=== PATIENT | male | born 2005 | race Caucasian/White ===

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

== ENCOUNTER 2023-02-10 09:06 | Outpatient (AMB) | payer MEDICAID, SELFPAY ==
--- NOTE | 2023-02-10 09:11 | MHC.OFFVIS ---
Intake Vital Signs 02/10/23 09:20 Height 5 ft 5 in Weight 187 lb 2 oz BMI 31.1 BP 124/71 Blood Pressure Location Lt brachial Position Sitting Pulse 116 H Intake Visit Reasons: pilonidal abscess *urgent appt request by * Intake Note: Patient is seen in office for follow up visit, following pilonidal abscess. Patient c/o: admits to increase pain onset 5 days ago, went to [facility] walk-in yesterday was Rx antbx, feeling feverish , denies redness, hot to touch, discharge E Commerce Marketing Manager Required: No Accompanied by: Family/Other Allergies No Known Allergies Allergy (Unverified 02/10/23 09:19) HPI HPI Comments History of Present Illness Details 17-year-old male patient previously evaluated for pilonidal cyst which resolved spontaneously after starting antibiotics now presenting with a recurrent abscess. The pain began approximately 4 days ago and has increased in severity since then. He denies fever or chills but does feel sick. Pain increases with walking and sitting. He denies any bleeding or discharge. He was started on antibiotics yesterday and has taken 3 doses so far. FORMERLY [facility] Medical History Eczema Autism Pilonidal abscess Surgical History History of wisdom tooth extraction Family History Father Non-Hodgkin lymphoma, Onset Age: 40 Social History Alcohol intake: never Patient Tobacco Use Status: Never used Tobacco Review of Systems Const All systems reviewed & are unremarkable except as noted in HPI and below Physical Exam Const General: comfortable and no acute distress Nutritional Appearance: well nourished Orientation/consciousness: patient oriented x3 Limitations: no limitations Resp Effort & Inspection: normal respiratory effort GI Inspection: Yes normal to inspection Back/Spine/Pelvis Back/spine/pelvis image: 1. Site of large abscess right intergluteal fold, tender to palpation surrounding erythema. No discharge noted. Skin General skin exam: no rashes or lesions noted Neuro General: patient oriented x3 Extrem General: Yes no clubbing, cyanosis or edema Office Procedures I&D Drain Details: Preoperative diagnosis: Pilonidal cyst abscess Postoperative diagnosis: Same Procedure: Incision and drainage pilonidal cyst abscess Surgeon: Ronny Kilpatrick MD Dentures Lab Technician: None Anesthesia: Lidocaine 1% with epinephrine Indications for procedure: Recurrent pilonidal cyst abscess right gluteal wall Operative findings: Large pilonidal cyst abscess collection Specimen: Wound culture Estimated blood loss: Less than 1 mL Complications: None Procedure details: Patient was placed in a prone position. The site of surgery was confirmed by the patient and informed consent confirmed. After assuring informed consent the skin was prepped with Betadine and draped in a sterile fashion. Local anesthesia was then infiltrated directly over the center portion of the abscess. Incision measuring approximately 1.5 cm was then made directly into the abscess. A large purulence collection was immediately drained. This was then irrigated with saline solution. Wound was then packed with quarter-inch Nu Gauze. Wound was then dressed with fluff gauze and ABD pad. This was then secured using paper tape. The patient tolerated the procedure well. He was discharged to home in stable condition. 12060-Nnfjuzky of Skin Abscess, simple All charges added?: Procedure code (CPT) selection complete Assessment & Plan Assessment & Plan (1) Pilonidal abscess: Code(s): L05.01 - Pilonidal cyst with abscess Plan 17-year-old male patient with recurrent pilonidal cyst abscess. He underwent incision and drainage today and tolerated the procedure well. He will follow up in 1 week for wound check. I recommended changing dressings 1-2 times daily. He may soaked wound in a Sitz bath, warm tub, or shower. Packing will generally fall out after 2-3 days. If it should remain in place, this will be removed in the office. On the other hand if it falls out sooner, he will not need to be replaced. He should continue antibiotics as prescribed. Orders: Orders Routine Culture w Gram Stain Today L05.01 - Pilonidal cyst with abscess Coding Level of Care Code Est Pt Level 3 (65803) Diagnoses Pilonidal abscess L05.01 CPT Codes I&D Drain - Drain 1: 31692-Rggekpou of Skin Abscess, simple ([id number])
[2023-02-10 09:20] VITALS: BP 124/71; PULSE 116; BMI 31.1
== END 2023-02-10 09:40 | disposition home or self-care (01) ==
PROVIDERS: PCP Registered Nurse; Visit Provider Surgery
DX: L05.01 Pilonidal cyst with abscess (principal)
CPT/HCPCS: 10080; 99213

== ENCOUNTER 2023-02-10 09:06 | Outpatient (REF) | payer MEDICAID, SELFPAY | END 2023-02-10 09:07 | disposition home or self-care (01) | LOC: HO.LNP 09:06 | PROVIDERS: PCP Registered Nurse; Visit Provider Surgery | DX: L05.01 Pilonidal cyst with abscess (principal) | CPT/HCPCS: 10080; 87070; 87205; 99212 ==

== ENCOUNTER 2023-02-17 09:06 | Outpatient (REF) | payer MEDICAID, SELFPAY ==
[2023-02-17 11:29] LABS: Estimated Average Glucose 105 mg/dL; Hemoglobin A1c % 5.3 % (<6.0)
[2023-02-17 12:05] LABS: Alanine Aminotransferase 53 U/L (0-40); Albumin Level 4.7 g/dL (3.5-5.0); Alkaline Phosphatase 75 U/L (39-117); Anion Gap 10 (12-20); Aspartate Amino Transferase 28 U/L (5-37); Bilirubin Total 0.3 mg/dL (0.0-1.0); Blood Urea Nitrogen 9 mg/dL (9-16); Calcium 9.6 mg/dL (8.4-10.2); Carbon Dioxide 29 mmol/L (22-29); Chloride 105 mmol/L (96-108); Cholesterol 151 mg/dL (<200); Estimated Glomerular Filt Rate > 60; Glucose Random 94 mg/dL (60-115); HDL Cholesterol 40 mg/dL (>40); LDL Cholesterol Calculated 77 mg/dL (<100); Sodium 140 mmol/L (135-145); Total Protein 7.6 g/dL (6.5-8.0); Triglycerides 171 mg/dL (<150)
[2023-02-17 12:07] LABS: TSH reflex Free T4 2.32 uIU/mL (0.32-4.0)
== END 2023-02-17 09:07 | disposition home or self-care (01) ==
LOC: HO.HHCL 09:06
PROVIDERS: Visit Provider General Practice
DX: Z00.00 Encounter for general adult medical examination without abnormal findings (principal); L05.01 Pilonidal cyst with abscess
CPT/HCPCS: 36415; 80053; 80061; 83036; 84443; 99212

== ENCOUNTER 2023-02-17 09:36 | Outpatient (AMB) | payer MEDICAID, SELFPAY ==
--- NOTE | 2023-02-17 09:41 | A.OFFVIS_ITS ---
Intake Vital Signs 3 02/17/23 09:42 Height 5 ft 5 in Weight 189 lb BMI 31.4 BP 126/75 Blood Pressure Location Lt brachial Position Sitting Pulse 90 Intake Visit Reasons: f/u I&D Intake Note: Patient is seen in office for one week follow up visit, following I&D pilonidal abscess. Patient c/o: no discharge for the past couple of days, finish the antibiotics, healing Marketing Reporting Analyst Required: No Accompanied by: Family/Other Allergies No Known Allergies Allergy (Unverified 02/17/23 09:43) Medication List - Last Reconciled 02/17/23 by Ronny Kilpatrick MD clonidine HCl 0.1 mg PO DAILY doxycycline hyclate 100 mg PO BID risperidone 1 mg PO BEDTIME HPI HPI Comments 2 History of Present Illness0 Details 17-year-old male patient previously eval uated for pilonidal cyst which resolved spontaneously after starting antibiotics now presenting with a recurrent abscess. The pain began approximately 1 week ago and subsequently required incision and drainage performed in the office last week. Since this time he feels much improved with no further discharge for the last several days. He denies fever, chills, nausea or vomiting. He denies any further pain in the back. He is interested in having this site excised as this is the 3rd recurrence of his infection. [facility]LY [facility] Medical History Eczema Autism Pilonidal abscess Surgical History History of wisdom tooth extraction Family History Father Non-Hodgkin lymphoma, Onset Age: 40 Alcohol intake: never Patient Tobacco Use Status: Never used Tobacco Review of Systems Const All systems reviewed & are unremarkable except as noted in HPI and below Physical Exam Vital Signs: Last Vital Signs Pulse 90 02/17/23 09:42 BP 126/75 02/17/23 09:42 BMI result Body Mass Index 31.4 Const General: comfortable and no acute distress Nutritional Appearance: well nourished Orientation/consciousness: patient oriented x3 Limitations: no limitations Resp Effort & Inspection: normal respiratory effort GI Inspection: Yes normal to inspection Back/Spine/Pelvis Other: Incision and drainage site on the right gluteal wall is clean and intact without evidence of fluctuance or drainage. Palpable tenderness is elicited. No evidence of ongoing infection at this time. Back/spine/pelvis image: 2 1. Incision site right gluteal wall Skin General skin exam: no rashes or lesions noted Neuro General: patient oriented x3 Extrem General: Yes no clubbing, cyanosis or edema Assessment & Plan Assessment & Plan (1) Pilonidal abscess: Code(s): L05.01 - Pilonidal cyst with abscess Plan 17-year-old male patient with a history of multiple recurrent pilonidal cyst abscesses returning 1 week following incision and drainage of a large pilonidal cyst abscess. We discussed the possibility of wider excision of the cleft as a way to reduce the chances of recurrent infection. After discussion of the procedure, risks, and alternatives, he consents to a pilonidal cystectomy. This will be performed as a short-stay surgery. Coding Level of Care Code Global (53512) Diagnoses Pilonidal abscess L05.01
[2023-02-17 09:42] VITALS: BP 126/75; PULSE 90; BMI 31.4
== END 2023-02-17 09:50 | disposition home or self-care (01) ==
PROVIDERS: PCP Registered Nurse; Visit Provider Surgery
DX: L05.01 Pilonidal cyst with abscess (principal)
CPT/HCPCS: 99024

== ENCOUNTER 2023-03-04 05:57 | Day surgery (SDC) | payer MEDICAID, SELFPAY ==
[2023-03-02 11:20] VITALS: BMI 31.4
--- NOTE | 2023-03-03 09:00 | HO.ANESPROP2 ---
Documented by User: Kim Yoon NP 03/03/23 09:00 HPI - Anesthesia Eval Consult details Narrative: 17yo M for Excision Pilonidal Cyst PMFSH Active Problems Active Problems: All Active Problems (Updated 05/15/22 @ 11:18 by Ronny Kilpatrick MD) Pilonidal abscess (Acute) Past Medical History Medical History Eczema Autism Pilonidal abscess Family History Family History Father Non-Hodgkin lymphoma, Onset Age: 40 Surgical History Surgical History History of wisdom tooth extraction Social History Social History Alcohol intake: never Patient Tobacco Use Status: Never used Tobacco Are you DNR?: No Advance Directives: No Advance Directives Information Provided: Yes Nutrition Risks: No Nutritional Risk Meds Allergies Allergy/AdvReac Type Severity Reaction Status Date / Time No Known Allergies Allergy Verified 03/04/23 06:22 Home Medications Medication Instructions Recorded Confirmed Last Taken Type risperidone 1 mg tablet 1 mg PO BEDTIME 02/10/23 03/04/23 03/02/23 History famotidine 20 mg tablet 20 mg PO BEDTIME 03/04/23 03/04/23 03/03/23 History hydroxyzine HCl 25 mg tablet 25 mg PO BEDTIME PRN insomnia 03/04/23 03/04/23 03/03/23 History Exam Height,Weight and Vital Signs: Height 5 ft 5 in Weight 85.729 kg Pertinent Lab Results Pertinent Lab Results: Laboratory Tests 02/17/23 09:09 Sodium 140 Potassium 4.0 Chloride 105 Carbon Dioxide 29 BUN 9 Creatinine 0.78 Assessment and Plan Assessment Anesthesia Assessment: Chart Reviewed Documented by User: Javon Turner MD 03/04/23 07:27 FORMERLY [facility] Past Medical History Medical History Eczema Autism Pilonidal abscess Family History Family History Father Non-Hodgkin lymphoma, Onset Age: 40 Family history of problems with anesthesia: No Surgical History Surgical History History of wisdom tooth extraction History of Problems with Anesthesia: No Social History Social History Alcohol intake: never Patient Tobacco Use Status: Never used Tobacco Are you DNR?: No Advance Directives: No Advance Directives Information Provided: Yes Nutrition Risks: No Nutritional Risk Meds Allergies Allergy/AdvReac Type Severity Reaction Status Date / Time No Known Allergies Allergy Verified 03/04/23 06:22 Home Medications Medication Instructions Recorded Confirmed Last Taken Type risperidone 1 mg tablet 1 mg PO BEDTIME 02/10/23 03/04/23 03/02/23 History famotidine 20 mg tablet 20 mg PO BEDTIME 03/04/23 03/04/23 03/03/23 History hydroxyzine HCl 25 mg tablet 25 mg PO BEDTIME PRN insomnia 03/04/23 03/04/23 03/03/23 History Exam Airway Mallampati Class: I TM Dist: <=3cm Neck ROM: Full Loose/Missing/Broken Teeth: No Heart: ok Lungs: ok Assessment and Plan Assessment Anesthesia Assessment: Anesthesia Plan Discussed Final Anesthetic Review Family History of Problems with Anesthesia: No History of Problems with Anesthesia: No NPO: Yes ASA Class: II Final Preanesthetic Review: No Changes in Pt Med Stat, Meds/Allgs Chart Reviewed, Consent Obtained/Reviewed and Anes Risks/Benef Reviewed Patient Risk: Intermediate Procedure Risk: Intermediate Anesthetic Plan Anesthetic Plan: GA and Agree w/ Assess. and Plan Disposition: Standard PACU
[2023-03-04] VITALS (7 sets, daily range): BP systolic 124–147; BP diastolic 72–85; PULSE 73–97; RESP 16–20; TEMP 36.6; O2SAT 96–98; BMI 30.8
[2023-03-04] MEDS: Lactated Ringers 1,000 ML 100 ML IVCONT (06:32)
--- NOTE | 2023-03-04 07:27 | MHC.SHP ---
Pre-Procedural Eval Section A Date of Service: 03/04/23 The patient is an INPATIENT: No Changes since office visit: Yes Patient answered all questions; No Cold of Flu in the past 2 weeks, No New Medical Problems and No Changes in Medication The History & Physical has been completed within 30 days and I have reviewed it.: Yes Section B Chief Complaint: Pilonidal cyst with abscess Allergies: Allergies Allergy/AdvReac Type Severity Reaction Status Date / Time No Known Allergies Allergy Verified 03/04/23 06:22 Plan Diagnosis/Plan: Unchanged I have reviewed the history and physical and performed a pertinent physical examination on my patient. No changes have occurred unless specified. Time Spent With Patient Time: Total time managing care of this patient today ____ minutes.
--- NOTE | 2023-03-04 08:25 | W.PM.OPN ---
Operative Note Operative Note Date of Service: 03/04/23 Narrative: Preoperative diagnosis: pilonidal cyst abscess Postoperative diagnosis: same Procedure: pilonidal cystectomy Surgeon: Ronny Kilpatrick MD Fibre Optics Jointer: none Anesthesia: general LMA Indications for procedure: 17-year-old male patient presenting with multiple episodes of pilonidal cyst abscess presenting today for wide excision to reduce the chances of further infection Operative findings: pilonidal cyst with no active infection Specimen: pilonidal cyst Estimated blood loss: 5 mL Complications: none Procedure details: patient was brought to the OR and placed in a prone position. After administering general anesthesia patient's p.o. cleft was prepped with Betadine and draped in a sterile fashion. A surgical time-out was called the consent confirmed. Patient received preoperative antibiotics and Venodyne boots were in place. Local anesthesia consisting of 0.5% Sensorcaine was infiltrated around the pilonidal cyst. An elliptical incision radiating to the right was then created with a scalpel carried out through subcutaneous tissue. Electrocautery was then used to dissect the lesion off the presacral fascia. Specimen was passed off the table and sent to pathology for further examination. Hemostasis was assured using electrocautery. The wounds were then irrigated with saline solution. Deep subcutaneous tissue was then closed using interrupted 2-0 Polysorb suture. Dermis was then reapproximated using interrupted 3-0 Polysorb sutures. Skin was closed using interrupted 2 0 nylon sutures in a mattress formation. Sterile dressings consisting of flat gauze and ABD pad were then applied. The patient tolerated the procedure well. Sponge, instrument, needle counts reported as correct. The patient was transferred to PACU in stable condition.
== END 2023-03-04 09:45 | disposition home or self-care (01) ==
PROVIDERS: Visit Provider Surgery
PROC: (CPT 11771; principal; 2023-03-04 07:30)
DX: L05.01 Pilonidal cyst with abscess (principal); F84.0 Autistic disorder; L30.9 Dermatitis, unspecified; Z79.899 Other long term (current) drug therapy
CPT/HCPCS: 11771; 88304; J1885; J2405; J2704; J2795; J3010

== ENCOUNTER → 2023-03-04 05:57 | Outpatient (BNV) | payer MEDICAID, SELFPAY | PROVIDERS: Visit Provider Surgery | DX: L05.01 Pilonidal cyst with abscess (principal) | CPT/HCPCS: 11771 ==

== ENCOUNTER 2023-03-13 08:51 | Outpatient (AMB) | payer MEDICAID, SELFPAY ==
--- NOTE | 2023-03-13 09:02 | MHC.OFFVIS ---
Intake Vital Signs 03/13/23 09:12 Height 5 ft 5 in Weight 184 lb 8 oz BMI 30.7 BP 114/61 Blood Pressure Location Lt brachial Position Sitting Pulse 87 Intake Visit Reasons: S/P pilonidal cystectomy Intake Note: Patient is seen in office for post op assessment post excision of pilonidal cyst. Pt c/o: admits to minimal pain, some discharge, area is crusty surgery: 03/04/23 Cuprous Chloride Operator Required: No Accompanied by: Self / Same As Patient Allergies No Known Allergies Allergy (Verified 03/04/23 06:22) Medication List - Last Reconciled 03/13/23 by Ronny Kilpatrick MD famotidine 20 mg PO BEDTIME hydroxyzine HCl 25 mg PO BEDTIME PRN risperidone 1 mg PO BEDTIME HPI HPI Comments History of Present Illness Details Patient returns 1 week following pilonidal cystectomy. He reports some itching from the incision but denies any bleeding or discharge. [facility] Medical History Eczema Autism Pilonidal abscess Surgical History History of excision of pilonidal cyst (03/04/23) History of wisdom tooth extraction Family History Father Non-Hodgkin lymphoma, Onset Age: 40 Social History Alcohol intake: never Patient Tobacco Use Status: Never used Tobacco Physical Exam Vital Signs: Last Vital Signs Pulse 87 03/13/23 09:12 BP 114/61 03/13/23 09:12 BMI result Body Mass Index 30.7 GI Other: Incision in the intergluteal cleft is clean, dry and intact. 1/2 of the sutures were removed and the wounds found to be well healed. No evidence of an underlying infection. Assessment & Plan Assessment & Plan (1) Pilonidal abscess: Code(s): L05.01 - Pilonidal cyst with abscess Plan Patient returns 1 week following pilonidal cystectomy. His wounds are clean and intact. 1/2 was removed. He will return in 2 weeks for the remaining sutures to be removed. Coding Level of Care Code Global (35482) Diagnoses Pilonidal abscess L05.01
[2023-03-13 09:12] VITALS: BP 114/61; PULSE 87; BMI 30.7
== END 2023-03-13 09:24 | disposition home or self-care (01) ==
PROVIDERS: PCP Registered Nurse; Visit Provider Surgery
DX: L05.01 Pilonidal cyst with abscess (principal)
CPT/HCPCS: 99024

== ENCOUNTER → 2023-03-13 08:51 | Outpatient (BNVA) | payer MEDICAID, SELFPAY | PROVIDERS: PCP Registered Nurse; Visit Provider Surgery | DX: Z48.817 Encounter for surgical aftercare following surgery on the skin and subcutaneous tissue (principal); Z98.890 Other specified postprocedural states | CPT/HCPCS: 99212 ==

== ENCOUNTER 2023-03-31 09:41 | Outpatient (AMB) | payer MEDICAID, SELFPAY ==
--- NOTE | 2023-03-31 09:50 | MHC.OFFVIS ---
Intake Vital Signs 03/31/23 09:51 Height 5 ft 5 in Weight 186 lb 8 oz BMI 31.0 BP 117/64 Blood Pressure Location Lt brachial Position Sitting Pulse 79 Intake Visit Reasons: 2 wk follow up S/P pilonidal cystectomy Intake Note: Patient is seen in office for 2 weeks follow up visit, post pilonidal cystectomy. Pt c/o: denies any concerns at the time of visit Lithopone Mill Worker Required: No Accompanied by: Self / Same As Patient Allergies No Known Allergies Allergy (Verified 03/31/23 09:55) HPI HPI Comments History of Present Illness Details Andrae returns today for final wound check. He feels well and denies any ongoing symptoms of bleeding or discharge. He had some pain yesterday but is improved today. [facility] Medical History Eczema Autism Pilonidal abscess Surgical History History of excision of pilonidal cyst (03/04/23) History of wisdom tooth extraction Family History Father Non-Hodgkin lymphoma, Onset Age: 40 Social History Alcohol intake: never Patient Tobacco Use Status: Never used Tobacco Physical Exam Vital Signs: Last Vital Signs Pulse 79 03/31/23 09:51 BP 117/64 03/31/23 09:51 BMI result Body Mass Index 31.0 Const General: healthy appearing Back/Spine/Pelvis Other: Incision in the intergluteal cleft is clean, dry, and intact. Three remaining sutures were removed and the wounds found to be well healed. Extrem General: No edema Assessment & Plan Assessment & Plan (1) Pilonidal abscess: Code(s): L05.01 - Pilonidal cyst with abscess Plan Patient returns approximately 4 weeks following pilonidal cystectomy. His wounds are clean, dry, and intact. He should follow up as needed. Coding Level of Care Code Global (19866) Diagnoses Pilonidal abscess L05.01
[2023-03-31 09:51] VITALS: BP 117/64; PULSE 79; BMI 31.0
== END 2023-03-31 10:20 | disposition home or self-care (01) ==
PROVIDERS: PCP Registered Nurse; Visit Provider Surgery
DX: L05.01 Pilonidal cyst with abscess (principal)
CPT/HCPCS: 99024

== ENCOUNTER → 2023-03-31 09:41 | Outpatient (BNVA) | payer MEDICAID, SELFPAY | PROVIDERS: PCP Registered Nurse; Visit Provider Surgery | DX: Z09 Encounter for follow-up examination after completed treatment for conditions other than malignant neoplasm (principal); Z87.2 Personal history of diseases of the skin and subcutaneous tissue | CPT/HCPCS: 99212 ==

== ENCOUNTER → 2024-04-07 20:52 | Outpatient (BNV) | payer MEDICAID, SELFPAY | PROVIDERS: PCP General Practice; Visit Provider Radiology Neuroradiology | DX: S62.304A Unspecified fracture of fourth metacarpal bone, right hand, initial encounter for closed fracture (principal) | CPT/HCPCS: 73130 ==

== ENCOUNTER 2024-04-12 09:54 | Outpatient (REF) | payer MEDICAID, SELFPAY ==
--- NOTE | ~2024-04-12 | XR_ITS ---
EXAMINATION: XR HAND 3 OR MORE VIEWS LEFT HISTORY: M79.642 - Pain in left hand COMPARISON: Comparison is made with the prior examination dated 04/07/2024. FINDINGS: Three views of the left hand are submitted. Osseous mineralization is normal. Again seen is a nondisplaced fracture of the base of the 5th metacarpal. The fracture line remains visible. The joint spaces are preserved. The soft tissues are unremarkable. XR/XR hand LT min 3V IMPRESSION: Nondisplaced fracture of the base of the 5th metacarpal without significant change. Electronically signed by: Mane Reynaga MD 04/14/2024 08:53 AM [facility]
== END 2024-04-12 09:55 | disposition home or self-care (01) ==
LOC: HO.HOSX 09:54
DX: M79.642 Pain in left hand (principal)
CPT/HCPCS: 73130

== ENCOUNTER 2024-04-12 13:52 | Outpatient (AMB) | payer MEDICAID, SELFPAY ==
[2024-04-12 14:12] VITALS: BMI 36.8
--- NOTE | 2024-04-12 14:12 | MHC.OFFVIS ---
Vital Signs 04/12/24 14:12 Height 5 ft 5 in Weight 221 lb BMI 36.8 Intake Visit Reasons: FC- ED f/u LT hand fx base of left 5th metacarpal Intake Note: Andrae 18 yr old left hand dominant male present today for a new patient visit for his left hand 5th MC fx. States he was upset and punch his monitor last 04/07/24. States he was seen in ED same day and was confirmed a fx. He was splinted and referred to orthopedic. Currently states he feels stiffness in his fingers. Denies pain. Allergies No Known Allergies Allergy (Verified 04/12/24 14:19) HPI HPI FC- ED f/u LT hand fx base of left 5th metacarpal: Details: Andrae 18 yr old left hand dominant male present today for a new patient visit for his left hand 5th MC fx. States he was upset and punch his monitor last 04/07/24. States he was seen in ED same day and was confirmed a fx. He was splinted and referred to orthopedic. Currently states he feels stiffness in his fingers. Denies pain. [facility] Medical History (Updated 05/03/24 @ 21:10 by CHAU Mcadams) Eczema Autism Pilonidal abscess Surgical History History of excision of pilonidal cyst (03/04/23) History of wisdom tooth extraction Family History Father Non-Hodgkin lymphoma, Onset Age: 40 Social History Alcohol intake: never Patient Tobacco Use Status: Never used Tobacco Review of Systems Const All systems reviewed & are unremarkable except as noted in HPI and below Physical Exam Vital Signs: BMI result Body Mass Index 36.8 Extrem Other: Patient is alert, oriented, and in no acute distress. Neuro: Normal sensation of the tips of all digits of the left hand at this time Vascular: Cap refill brisk Pain: Patient reports tenderness to palpation at the level of the fracture of the left 5th metacarpal Minimal discomfort with range of motion ROM: Patient was able to make a closed fist and extend all digits of the left hand fully Skin: No lacerations or abrasions. General: Mild edema noted of the ulnar left hand No ecchymosis, erythema, or evidence of infection. Psych: Appears grossly normal Affect normal Attitude cooperative Office Procedures AMB Fracture Care Fracture Billing Code: Fracture Billing Code Casting/Splints 05611-Niiv/Wrist Cast Application Procedure code (CPT) selection complete Results Reviewed Results Reviewed: X-rays obtained in the office today and independently reviewed by me, Carl Lucas PA-C, demonstrate nondisplaced fracture of the left 5th metacarpal base. Assessment & Plan Assessment & Plan (1) Nondisplaced fracture of base of fifth metacarpal bone, left hand, sequela: Code(s): S62.347S - Nondisplaced fracture of base of fifth metacarpal bone, left hand, sequela Category: Medical Plan 1. Nondisplaced left 5th metacarpal base fracture Date of injury 04/07/2024 Patient is educated about This condition Patient is educated about the typical recovery course At this time, patient was informed that he will not require surgery for this fracture, as it was nondisplaced Patient was placed into a short-arm ulnar gutter cast Patient was educated on proper cast care and precautions Patient will follow-up in 3 weeks with repeat x-rays for reassessment, sooner with any acute concerns Orders: Orders XR hand LT min 3V 04/12/24 M79.642 - Pain in left hand Coding Level of Care Code New Pt Level 3 (16677) Diagnoses Nondisplaced fracture of base of fifth metacarpal bone, left hand, sequela S62.347S CPT Codes Fracture Care - Fracture Billing Code: Fracture Billing Code ([id number]) Casting - CPT: 97990-Pzdi/Wrist Cast Application ([id number])
== END 2024-04-12 15:38 | disposition home or self-care (01) ==
PROVIDERS: PCP General Practice
DX: S62.347A Nondisplaced fracture of base of fifth metacarpal bone, left hand, initial encounter for closed fracture (principal)
CPT/HCPCS: 26600; 99203

== ENCOUNTER 2024-05-04 10:31 | Outpatient (REF) | payer MEDICAID, SELFPAY ==
--- NOTE | ~2024-05-04 | XR_ITS ---
CLINICAL HISTORY: M79.642 - Pain in left hand 3 view left hand Comparison: 04/07/2024 09:01 PM EST: CR Findings: Bones intact. No dislocations. No significant loss of joint space or osteophytes. No erosions. No radiopaque foreign body. IMPRESSION: 1. No acute findings This document has been electronically signed by: Jamey Jacob MD on 05/06/2024 08:09:25
--- OUTSIDE RECORDS SUMMARY | 2024-05-04 11:29 | XMS_ITS | Clinical Summary ---
Author Organization [employer] Address [address] [place] [address] 7t [place] [address] Care Team Providers Care Combiner Operator Name Role Phone Isha Estrada MD Primary Care Provider [phone] Allergies No known active allergies Medications triamcinolone (Kenalog) 0.1 % ointmentIndicat ions:Rash of both hands Apply topically 2 times daily. 30 g 3 Active propranolol (Inderal) 10 MG tablet TAKE 1 TABLET BY MOUTH TWICE A DAY NEEDED FOR SOCIAL ANXIETY 3 Active risperiDONE (RisperDAL) 1 MG tablet Take 1 mg by mouth at bedtime. 3 Active famotidine (Pepcid) 20 MG tablet Take 1 tablet (20 mg) by mouth at bedtime. 90 tablet 3 3 Active hydrOXYzine HCl (Atarax) 25 MG tablet TAKE 1 TABLET BY MOUTH ONCE DAILY AT BEDTIME NEEDED FOR SLEEP 90 tablet 3 4 Active Active Problems Problem Noted Date Diagnosed Date Reflux laryngitis 02/12/2023 Assessment & Plan (02/12/2023 10:22 AM EST): Presumptive dx due to tooth erosion Trial of Pepcid 20mg nightly x 3 months Hypertriglyceridemia 03/14/2022 Major depressive disorder 03/14/2022 Obesity 01/28/2017 Reduced visual acuity 08/16/2014 Autistic disorder 11/03/2011 Assessment & Plan (02/12/2023 10:21 AM EST): Trouble sleeping is main issue Switch from Clonidine to Attarax over next two weeks Continue Risperidal at night (prescribed by psych) Encounters Date Type Department Care Team Description 05/02/2024 Patient Outreach [facility] [address] [place] [address] Isha Estrada MD Pre-visit Planning ((Unable to reach for PVP screening, LVM)) 04/07/2024 Orders Only [facility] External Provider, [facility] 03/17/2024 Patient Outreach [facility] [address] [place] [address] Isha Estrada MD Pre-visit Planning ((Unable to reach for PVP screening, LVM)) 02/14/2024 Refill [facility] [address] [place] [address] Isha Estrada MD from Last 3 Months Immunizations Name Administration Dates Next Due DTaP 07/04/2008,01/25/2004 DTaP / Hep B / IPV 01/26/2004 DTaP, 5 pertussis antigens 01/01/2005,,2003,09/14 DTaP, Unspecified 01/01/2005,2003,09/15/19 04 HPV 9-Valent 02/11/2023,07/06/2020 Hep A, ped/adol, 2 dose 02/18/2013 Hep A, ped/adol, 3 dose 07/22/2010 Hep B, Adolescent or Pediatric 01/25/2004,2003,2003 Hep B, Unspecified 2003 HiB, unspecified 01/01/2005,01/26/2004, 4 Hib (HbOC) 01/25/2004,2003 Hib (PRP-T) 01/01/2005, 4,2003,09/14 IPV 07/04/2008, 4,2003,09/14 Influenza Injectable Quadriv alant Preservative Free IIV4 MDCK 01/28/2019 Influenza injectable quadriv alent preservative free 02/11/2023,01/01/2022,12/01/2020,02/20,05/07/2018,01/28/2017 Influenza, IIV3, injectable 12/18/2006 Influenza, Unspecified 04/16/2005 Influenza, live, intranasal 02/18/2013 MMR 07/04/2008,09/11/2004 Meningococcal MCV4P ACYW-135 02/21/2020,08/17/19 Pfizer Covid-19 Vaccine 12+ 02/11/2023,,07/25/2020 Pneumococcal Conjugate PCV 7 09/11/2004, 01/26/2004,01/25/2004,11/14,2003 Polio, Unspecified 2003,2003 Tdap 08/16/2014 Varicella 07/04/2008,09/11/2004 Social History Tobacco Use Types Packs/Day Years Used Date Smoking Tobacco: Never Passive Smoke Exposure: Never Smokeless Tobacco: Never Tobacco Cessation:Counseling Given: Not Answered Alcohol Use Standard Drinks/Week Comments Never 0 (1 standard drink = 0.6 oz pur e alcohol) Alcohol Answer Date Recorded Frequency of Alcohol Consumption Not on file 02/11/2023 Average Number of Drinks Not on file 023 Frequency of Binge Drinking Not on file 01/28 Score 0 02/11/2023 Depression Answer Date Recorded Patient Health Questionnaire-9 Score 0 02/11/2023 Patient Health Questionnaire-9 Score 0 02/11/2023 Last PHQ-9: Questionnaire Data Not on file 1 04/13/2022 Housing Stability Answer Date Recorded What is your housing situation today? I have kashkarena virgen 02/02/[address] you li ve. Do you have problems with any of the following? None of the above 02/02/2023 Food Insecurity Answer Date Recorded Within the past 12 months, y ou worried that your food would run out before you got money to buy more: Never True 02/02/2023 Within the past 12 months,th e food you bought just didn't last and you didn't have enough money to get more: Never True 08/2022 Transportation Answer Date Recorded In the past 12 months, has l ack of transportation kept you from medical appts, meetings, work or from getting things needed for daily living? No 02/02/2023 Utilities Answer Date Recorded In the past 12 months, has t he electric, gas, oil or water company threatened to shut off services in your home? No 02/02/2023 Depression Answer Date Recorded Patient Health Questionnaire-2 Score 0 02/11/2023 Sex and Gender Information Value Date Recorded Sex Assigned at Male 01/27/2022 10:19 AM EDT Legal Sex Male 10:19 AM EDT Gender Identity Male 01/27/2022 10:19 AM EDT Sexual Orientation Straight 02/12/2023 10 :14 AM EST Last Filed Vital Signs Vital Sign Reading Time Taken Comments Blood Pressure 127/81 02/11/2023 2:01 PM EST Pulse 100 02/11/2023 2:01 PM EST Temperature 36.8 ??C (98.2 ??F) 02/11/2023 2:01 PM ES T Respiratory Rate 20 02/11/2023 2:01 PM EST Oxygen Saturation 98% 02/11/2023 2:01 PM EST Inhaled Oxygen Concentration - - Weight 86.3 kg (190 lb 3.2 oz) 02/11/2023 2:01 P M EST Height 165.1 cm (5' 5 ) 02/11/2023 2:01 PM EST Body Mass Index 31.65 02/11/2023 2:01 PM EST Plan of Treatment Upcoming Encounters Date Type Department Care Team (Late st Contact Info) Description 05/13/2024 10:30 AM EST Office Visit [facility] [address] [place] [address] Isha Estrada MD [address] [place] [address] Health Maintenance Due Date Last Done Comments Chlamydia and Gonorrhea Screening 2003 HIV Screening 2003 Hepatitis A Vaccines (2 of 2 - 2-dose series) 08/18/2013 02/18/2013 Alcohol/Substance Use Screening 2015 Family Planning (PISQ) 07/15/2018 Hepatitis C Screening 07/15/2021 HPV Vaccines (3 - Male 3-dose series) 05/06/2023 02/11/2023, 07/06/2020 COVID-19 Vaccine ( season) 2023 02/11/2023, 08/15/2020, 07/25/2020 Influenza Vaccine (#1) 2023 3, 01/01/2022, 12/01/2020, Additional history exists Depression Screening 02/12/2024 02/11/2023, 02/12/20 23 SDOH Screening 02/12/2024 02/11/2023 Tobacco Screening 02/12/2024 02/11/2023 DTaP/Tdap/Td Vaccines (7 - Td or Tdap) 08/16/2024 08/16/2014, 07/04/2008, 01/01/2005, Additional history exists Lipid Panel 02/18/2028 02/17/2023, 07/17/2020 Zoster Vaccines (1 of 2) 07/15/2053 RSV Patients and Patients Aged 60 years or older (1 - 1-dose 75+ series) 07/15/2078 Hepatitis B Vaccines Completed 01/26/2004, 01/25/2004, 2003, Additional history exists Pneumococcal Vaccine: Pediatrics (0 to 5 Years) and At-Risk Patients (6 to 49) Years) Aged Out 09/11/2004, 01/26/2004, 01/25/2004, Additional history exists No longer eligible based on patient's age to complete this topic HIB Vaccines Completed 01/01/2005, 07/2004, 01/26/2004, Additional history exists IPV Vaccines Completed 07/04/2008, 12/29, 01/25/2004, Additional history exists Meningococcal Vaccine Completed 02/21/2020, 015 RSV under 20 months Aged Out No longe r eligible based on patient's age to complete this topic Rotavirus Vaccines Aged Out No longer eligible based on patient's age to complete this topic Procedures Procedure Name Priority Date/Time Associated Diagnosis Comments XR HAND 3+ VIEWS LEFT Routine 04/07/2024 9:16 PM EST LIPID PANEL, STANDARD Routine 02/17/2023 9:09 AM EST Routine history and physical examination of adult from Last 3 Months or Most Recently Relevant to Health Maintenance Results * XR Hand 3+ Views Left (04/07/2024 9:16 PM EST) Anatomical Region Laterality Modality Upper Extremities, Hand Left [facility] 04/07/2024 9:16 PM EST Narrative 04/07/2024 9:18 PM EST ? [facility] ?[address] ?[place] [address] ?XRay Report ? Signed ? Patient: Malik,Andrae ?MR#: [id number] ?? 200 ? : 2005 ?Acct:[id number] ? Age/Sex: 18 / M ?ADM Date: 04/07/24 ? Loc: HO.ED ? Attending Dr: ? Ordering Physician: Karo Chavez NP ?? Date of Service: 04/07/24 ?? Procedure(s): XR hand LT min 3V ?? Accession Number(s): [id number] ? cc: Isha Estrada; Karo Chavez NP ? CLINICAL HISTORY: tenderness over 4th metacarpal, punched computer ? 3 view left hand ? Comparison: None ? Findings: ?? Mild deformity and bowing of the 5th metacarpal appears old/chronic with ?? remodeling. Fracture lucency of the base of the 5th metacarpal appears ?? acute with the adjacent soft tissue swelling. Portions of the additional ?? metacarpal bases obscured without additional displaced fracture. ?? No dislocation. Soft tissue swelling appears most pronounced in the thenar ?? region and dorsal distal soft tissues. ?? No erosions. No radiopaque foreign body. ? IMPRESSION: ?? 1. Acute fracture of the base of the 5th metacarpal superimposed on old ?? healed fracture with mild deformity. ? 2. No dislocation. ? This document has been electronically signed by: Sg Worthy MD on ?? 04/07/2024 21:16:06 ? Dictated By: ?Sg Worthy MD ? Signed By: ?<Electronically signed by Sg Worthy MD in OV> ? 04/07/242116 ? DD/ 15 ? TD/TT: 04/07/242115 ? Manager Packaging: ? Procedure Note Linda Horn - 04/07/[address] [address] XRay Report Signed Patient: Marce MalikYissel#: [id number] 200 : 2005Acct:[id number] Age/Sex: 18 / MADM Date: 04/07/24 Loc: HO.ED Attending Dr: Ordering Physician: Karo Chavez NP Date of Service: 04/07/24 Procedure(s): XR hand LT min 3V Accession Number(s): [id number] cc: Isha Estrada; Karo Chavez NP CLINICAL HISTORY: tenderness over 4th metacarpal, punched computer 3 view left hand Comparison: None Findings: Mild deformity and bowing of the 5th metacarpal appears old/chronic with remodeling. Fracture lucency of the base of the 5th metacarpal appears acute with the adjacent soft tissue swelling. Portions of the additional metacarpal bases obscured without additional displaced fracture. No dislocation. Soft tissue swelling appears most pronounced in the thenar region and dorsal distal soft tissues. No erosions. No radiopaque foreign body. IMPRESSION: 1. Acute fracture of the base of the 5th metacarpal superimposed on old healed fracture with mild deformity. 2. No dislocation. This document has been electronically signed by: Sg Worthy MD on 04/07/2024 21:16:06 Dictated By: Sg Worthy MD Signed By: <Electronically signed by Sg Worthy MD in OV> 04/07/242116 DD/ 15 TD/TT: 04/07/242115 Manager Packaging: [facility] External Provider IMG XR PROCEDURES Edited Result - Final * (ABNORMAL) Lipid Panel, Standard (02/17/2023 9:09 AM EST) Triglycerides 171(H) <150 mg/dL [facility] Comment:Desirable Triglyceri de: less than 90 mg/dLBorderline High Triglyceride: 90-129 mg/dLHigh Triglyceride: greater than 130 mg/dL Cholesterol 151 <200 mg/dL [facility] Comment:Desirable Cholestero l: less than 170 mg/dLBorderline High Cholesterol: 170-199 mg/dLHigh Cholesterol: greater than 200 mg/dL LDL Cholesterol Calculated 77 <100 mg/dL [facility] Comment:Desirable LDL: less than 110 mg/dLBorderline LDL: 110-129 mg/dLHigh LDL: greater than or equal to 130 mg/dL HDL Cholesterol 40(L) >40 mg/dL [facility] Comment:Desirable HDL: grea ter than 45 mg/dLBorderline HDL: 40-45 mg/dLLow HDL: less than 40 mg/dL Note: This HDL assay may give artificially low results in patients with liver disease. Blood Venous blood specimen / Unknown 02/17/2023 9:09 AM EST 02/17/2023 11:14 AM EST us Isha Estrada MD LAB BLOOD ORDERABLES Final Res ult [facility] [address] [place] [address] [phone] from Last 3 Months or Most Recently Relevant to Health Maintenance [email or web address] Care Teams Combiner Operator Relationship Specialty Start Date End Date Isha Estrada MD [address] [place] [phone] PCP - General Family Medicine 12/04/22
--- OUTSIDE RECORDS SUMMARY | 2024-05-04 11:29 | XMS_ITS | Encounter Summary ---
Author Organization [employer] Address [address] [place] [address] 7t [place] [address] Care Team Providers Care Press Clippings Cutter And Paster Name Role Phone Theron Melgar ZENON Primary Care Provider Unavail Isha Alvares MD Primary Care Provider [phone] Encounter Details Date Type Department Care Team (Late st Contact Info) Description 03/14/2022 Orders Only [facility] [address] [place] [address] Anupama Philip MD [address] [place], [place] [phone] Social History Tobacco Use Types Packs/Day Years Used Date Smoking Tobacco: Never Assessed Sex and Gender Information Value Date Recorded Sex Assigned at Male 01/27/2022 10:19 AM EDT Legal Sex Male 10:19 AM EDT Gender Identity Male 01/27/2022 10:19 AM EDT Sexual Orientation Straight 02/12/2023 10 :14 AM EST documented as of this encounter Plan of Treatment Upcoming Encounters Date Type Department Care Team (Late st Contact Info) Description 05/13/2024 10:30 AM EST Office Visit [facility] [address] [place] [address] Isha Estrada MD [address] [place], [place] [phone] documented as of this encounter Procedures Procedure Name Priority Date/Time Associated Diagnosis Comments GROSS AND MICROSCOPIC LEVEL 3 Routine 03/04/2023 7:56 AM EST GRAM STAIN Routine 02/10/2023 9:40 AM EST documented in this encounter Results * Gross and Microscopic Level 3 (03/04/2023 7:56 AM EST) 03/04/2023 7:56 AM EST 03/04/2023 8:48 AM EST Narrative [facility] - 03/06/2023 1:10 PM EST ----- ------- Name: Andrae Malik ?Age/Sex: 17/M ? : 2005 Unit#: [id number] ?? Attend Dr: Ronny Kilpatrick MD ?Re03/04/23 ?Status: DEP SDC ? Location: HO.SSS ?Disch: ? ----- ------- SPEC : [id number] ? RECD: 03/04/23-847 ? STATUS: ??SOUT ? REQ NUM: [id number] ? ANTHONY: 03/04/23-0756 ? SUBM DR: Ronny Kilpatrick MD ? ENTERED: ??03/04/23 ?SP TYPE: Surgical ? OTHR DR: [facility] ? ORDERED: ??Gross Micro L3 ? Diagnosis ?? Skin and subcutaneous tissue, pilonidal cyst , excision: ??Pilonidal cyst with associated ?? inflammatory changes. ?Clinical History Pilonidal cyst with abscess ?Microscopic Description Microscopic sections reviewed. ? Material Received ?? Pilonidal cyst ? Gross Description Received in formalin labeled ?pilonidal cyst? is a 3.7 x 1.0 cm ellipse of puckered and retracted campos skin and subcutaneous tissue excised to a maximum depth of 1.7 cm. ??The skin surface displays an eccentric 1.5 cm in length linear crease. ??The margins are inked and the specimen is serially sectioned to reveal a subjacent sinus tract extending to the deep margin with an edematous and erythematous campos-pink lining and multiple hairs. ??The remaining fibrous dermal tissue and subcutaneous fat is dense, edematous and fibrotic. ??General Purchasing Agent sections are submitted in a cassette labeled A1. CEDS Copies To: ?? [facility] ?? [address] ?? [place] [id number] ? Ronny Kilpatrick MD ?? [address] [place] [address] . ?? [place] [address] ?? [phone] ----- ------- Signed (signature on file) Valdo Gould MD 03/06/23 1310 ? ----- ------- ? END OF REPORT ? Generic External Data Provider LAB CYTOLOGY ORDE RABLES Final Result Performing Organization Address [facility] de Phone Number [facility] [address] [place], [place] [phone] * Gram stain (02/10/2023 9:40 AM EST) 02/10/2023 9:40 AM EST 02/10/2023 12:04 PM EST Comment:Pilonidal Narrative [facility] - 02/12/2023 8:41 AM EST Gram stain results: 3+ polys 4+ Gram-positive cocci 3+ Gram-negative rods Streptococcus viridans group Quant Org ID 4+ Susc N/A Susceptibility not routinely performed on this isolate. Specimen Source: Pilonidal Cyst Generic External Data Provider LAB MICROBIOLOGY - GENERAL ORDERABLES Final Result Performing Organization Address [facility] de Phone Number [facility] [address] [place] [address] [phone] documented in this encounter Visit Diagnoses Not on filedocumented in this encounter Care Teams Press Clippings Cutter And Paster Relationship Specialty Start Date End Date Theron Melgar AGNP PCP - General Family Medicine 02/24/22 12/03/22 Isha Estrada MD [address] [place] [phone] PCP - General Family Medicine 12/04/22 documented as of this encounter
--- OUTSIDE RECORDS SUMMARY | 2024-05-04 11:29 | XMS_ITS | Encounter Summary ---
Author Organization [employer] Address [address] [place] [address] 7[address] [place] [address] Care Team Providers Care Transformer Builder Name Role Phone Isha Estrada MD Primary Care Provider [phone] Encounter Details Date Type Department Care Team (Late st Contact Info) Description 04/07/2024 Orders Only [facility] External Provider, [facility] Social History Tobacco Use Types Packs/Day Years Used Date Smoking Tobacco: Never Passive Smoke Exposure: Never Smokeless Tobacco: Never Alcohol Use Standard Drinks/Week Comments Never 0 [...] is your housing situation today? I have kash virgen 02/02/[address] you [...] t he electric, gas, oil or water [employer] threatened to shut off services in your [...] Description 05/13/2024 10:30 AM EST Office Visit [facility] [address] [place] [address] Isha Estrada MD [address] [place] [address] documented as of this encounter Procedures Procedure Name Priority Date/Time Associated Diagnosis Comments XR HAND 3+ VIEWS LEFT Routine 04/07/2024 9:16 PM EST documented in this encounter Results * XR Hand 3+ Views Left (04/07/2024 9:16 PM EST) Anatomical Region Laterality Modality Upper Extremities, Hand Left Radiogra phic Imaging 04/07/2024 9:16 PM EST Narrative 04/07/2024 9:18 PM EST ? [facility] ?[address] ?[place] [address] ?XRay Report ? Signed ? Patient: Malik,Andrae ?MR#: [id number] ?? 200 ? : 2005 ?Acct:[id number] ? Age/Sex: 18 / M ?ADM Date: 01/09/25 ? Loc: HO.ED ? Attending Dr: ? Ordering Physician: Kathy,Karo PHARMACIST ?? Date of Service: 04/07/24 ?? Procedure(s): XR hand LT min 3V ?? Accession Number(s): [id number] ? cc: Isha Estrada; Karo Chavez PHARMACIST ? CLINICAL HISTORY: tenderness over 4th metacarpal, [...] ? DD/ 15 ? TD/TT: 04/07/242115 ? Organizational Effectiveness Consultant: ? Procedure Note Linda Horn - 04/07/[address] [address] XRay Report Signed Patient: Lidia Malik#: [id number] 200 : 2005Acct:[id number] Age/Sex: 18 / MADM Date: 04/07/24 Loc: HO.ED Attending Dr: Ordering Physician: Karo Chavez NP Date of Service: 04/07/24 Procedure(s): XR hand LT min 3V Accession Number(s): [id number] cc: Isha Estrada; Karo Chavez NP CLINICAL [...] in OV> 04/07/242116 DD/ 15 TD/TT: 04/07/242115 Organizational Effectiveness Consultant: [facility] External Provider IMG XR PROCEDURES Edited Result - Final documented in this encounter Visit Diagnoses Not on filedocumented in this encounter Additional Health Concerns Assessment Noted Time PHQ-9 Depression Total Score: 0 02/12/20 23 2:02 PM EST documented as of this encounter Care Teams Transformer Builder Relationship Specialty Start Date End Date Isha Estrada MD [address] [place] [address] PCP - General Family Medicine 12/04/22 documented as of this encounter
--- OUTSIDE RECORDS SUMMARY | 2024-05-04 11:29 | XMS_ITS | Encounter Summary ---
Author Organization [employer] Address [address] [place] [address] [address] [place] [address] Care Team Providers Care Tile And Marble Installer Name Role Phone Isha Estrada MD Primary Care Provider [phone] Reason for Visit * Reason Comments Pre-visit Planning (Unable to reach for PVP screening, LVM) Encounter Details Date Type Department Care Team ([facility] st Contact Info) Description 05/02/2024 Patient Outreach [facility] [address] [place], [place] [phone] Isha Estrada MD [address] [place], [place] [phone] Pre-visit Planning ((Unable to reach for PVP screening, LVM)) Social History Tobacco Use Types Packs/Day Years [...] AM EST documented as of this encounter Progress Notes * Isabel Ledesma - 05/02/2024 8:42 AM EST CC Isabel placed outbound call to patient to complete pre-visit planning. No answer at this time. Patient name and were not confirmed. CC left voicemail requesting return call. Direct contact information provided. documented in this encounter Plan of Treatment Upcoming Encounters Date Type Department Care Team (Late st Contact Info) Description 05/13/2024 10:30 AM EST Office Visit [facility] [address] [place] [address] Isha Estrada MD [address] [place] [address] documented as of this encounter Visit Diagnoses Not on filedocumented in this encounter Additional Health Concerns Assessment Noted Time PHQ-9 Depression Total Score: 0 02/12/20 2:02 PM EST documented as of this encounter Care Teams Tile And Marble Installer Relationship Specialty Start Date End Date Isha Estrada MD [address] [place] [phone] PCP - General Family Medicine 12/04/22 documented as of this encounter
== END 2024-05-04 10:32 | disposition home or self-care (01) ==
LOC: HO.HOSX 10:31
DX: S62.347 Nondisplaced fracture of base of fifth metacarpal bone, left hand (principal)
CPT/HCPCS: 73130; 99212

== ENCOUNTER 2024-05-04 13:10 | Outpatient (AMB) | payer MEDICAID, SELFPAY ==
--- NOTE | 2024-05-04 13:11 | A.OFFVIS_ITS ---
Vital Signs 05/04/24 13:23 Height 5 ft 5 in Weight 221 lb BMI 36.8 Intake Visit Reasons: OV - left hand 5th MC fx DOI 04/07/24 Intake Note: Andrae is a 18 year old left hand dominant male who presents today with his mother for a follow up of his Left 5th Metacarpal Fracture 04/07/2024. Patient was upset and punched a wall, fracturing his hand. At his last visit he was placed in a finger spica cast. Patient reports that he is doing well, he had no pain in the cast. He has some mild discomfort out of the cast while washing his hands in office. Allergies No Known Allergies Allergy (Verified 04/12/24 14:19) HPI HPI OV - left hand 5th MC fx DOI 04/07/24: Details: Andrae is a 18 year old left hand dominant male who presents today with his mother for a follow up of his Left 5th Metacarpal Fracture 04/07/2024. Patient was upset and punched a wall, fracturing his hand. At his last visit he was placed in a finger spica cast. Patient reports that he is doing well, he had no pain in the cast. He has some mild discomfort out of the cast while washing his hands in office. [facility] Medical History (Updated 05/03/24 @ 21:10 by CHAU Mcadams) Eczema Autism Pilonidal abscess Surgical History History of excision of pilonidal cyst (03/04/23) History of wisdom tooth extraction Family History Father Non-Hodgkin lymphoma, Onset Age: 40 Social History Alcohol intake: never Patient Tobacco Use Status: Never used Tobacco Review of Systems Const All systems reviewed & are unremarkable except as noted in HPI and below Physical Exam Vital Signs: BMI result Body Mass Index 36.8 Extrem Other: Patient is alert, oriented, and in no acute distress. Neuro: Normal sensation of the tips of all digits of the left hand at this time Vascular: Cap refill brisk Pain: Patient reports no tenderness to palpation at the level of the fracture of the left 5th metacarpal Minimal discomfort with range of motion ROM: Patient was able to make a closed fist and extend all digits of the left hand fully Skin: No lacerations or abrasions. General: Mild edema noted of the ulnar left hand No ecchymosis, erythema, or evidence of infection. Psych: Appears grossly normal Affect normal Attitude cooperative Results Reviewed Results Reviewed: X-rays obtained in the office today and independently reviewed by me, Carl Lucas PA-C, demonstrate nondisplaced fracture of the left 5th metacarpal base. Assessment & Plan Assessment & Plan (1) Nondisplaced fracture of base of fifth metacarpal bone, left hand, sequela: Code(s): S62.347S - Nondisplaced fracture of base of fifth metacarpal bone, left hand, sequela Category: Medical Plan 1. Nondisplaced left 5th metacarpal base fracture Date of injury 04/07/2024 Patient is educated about This condition Patient is educated about the typical recovery course At this time, patient was informed that he will not require surgery for this fracture, as it was nondisplaced Patient was placed into a Velcro wrist splint to be worn with daytime activities Patient was educated that he should remove this splint for bathing and resting Patient will follow-up in 4 weeks with repeat x-rays for reassessment, sooner with any acute concerns Orders: Orders XR hand LT min 3V Today M79.642 - Pain in left hand Coding Level of Care Code Global (28180) Diagnoses Nondisplaced fracture of base of fifth metacarpal bone, left hand, sequela S62.347S
[2024-05-04 13:23] VITALS: BMI 36.8
--- OUTSIDE RECORDS SUMMARY | 2024-05-04 14:31 | XMS_ITS | Encounter Summary ---
Author Organization [employer] Address [address] [place] [address] 7t [place] [address] Care Team Providers Care Color Control Supervisor Name Role Phone Theron Melgar ZENON Primary Care Provider Unavail Isha Alvares MD Primary Care Provider [phone] Encounter Details Date Type Department Care Team (Late st Contact Info) Description 03/14/2022 Orders Only [facility] [address] [place] [address] Anupama Philip MD [address] [place], [place] [phone] Social History Tobacco Use Types Packs/Day Years [...] Description 05/13/2024 10:30 AM EST Office Visit [facility] [address] [place] [address] Isha Estrada MD [address] [place], [place] [phone] documented as of this encounter Procedures Procedure Name Priority Date/Time Associated Diagnosis Comments GROSS AND MICROSCOPIC LEVEL 3 Routine 03/04/2023 7:56 AM EST GRAM STAIN Routine 02/10/2023 9:40 AM EST documented in this encounter Results * Gross and Microscopic Level 3 (03/04/2023 7:56 AM EST) 03/04/2023 7:56 AM EST 03/04/2023 8:48 AM EST Narrative [facility] - 03/06/2023 1:10 PM EST ----- ------- Name: Andrae Malik ?Age/Sex: 17/M ? : 2005 Unit#: [id number] ?? Attend Dr: Ronny Kilpatrick MD ?Re03/04/23 ?Status: DEP SDC ? Location: HO.SSS ?Disch: ? ----- ------- SPEC : [id number] ? RECD: 03/04/23-847 ? STATUS: ??SOUT ? REQ NUM: [id number] ? ANTHONY: 03/04/23-0756 ? SUBM DR: Ronny Kilpatrick MD ? ENTERED: ??03/04/23 ?SP TYPE: Surgical ? OTHR DR: [facility] ? ORDERED: ??Gross Micro L3 ? Diagnosis [...] subcutaneous fat is dense, edematous and fibrotic. ??Poultry Farmer Meat sections are submitted in a cassette labeled A1. CEDS Copies To: ?? [facility] ?? [address] ?? [place] [address] ? Ronny Kilpatrick MD ?? [address] [place] [address] . ?? [place] [address] ?? [phone] ----- ------- Signed (signature on file) Valdo Gould MD 03/06/23 1310 ? ----- ------- ? END OF REPORT ? Generic External Data Provider LAB CYTOLOGY ORDE RABLES Final Result Performing Organization Address [facility] de Phone Number [facility] [address] [place], [place] [phone] * Gram stain (02/10/2023 9:40 AM EST) 02/10/2023 9:40 AM EST 02/10/2023 12:04 PM EST Comment:Pilonidal Narrative [facility] - 02/12/2023 8:41 AM EST Gram stain results: 3+ polys 4+ Gram-positive cocci 3+ Gram-negative rods Streptococcus viridans group Quant Org ID 4+ Susc N/A Susceptibility not routinely performed on this isolate. Specimen Source: Pilonidal Cyst Generic External Data Provider LAB MICROBIOLOGY - GENERAL ORDERABLES Final Result Performing Organization Address [facility] de Phone Number [facility] [address] [place] [address] [phone] documented in this encounter Visit Diagnoses Not on filedocumented in this encounter Care Teams Color Control Supervisor Relationship Specialty Start Date End Date Theron Melgar AGNP PCP - General Family Medicine 02/24/22 12/03/22 Isha Estrada MD [address] [place] [address] PCP - General Family Medicine 12/04/22 documented as of this encounter
--- OUTSIDE RECORDS SUMMARY | 2024-05-04 14:31 | XMS_ITS | Encounter Summary ---
Author Organization [employer] Address [address] [place] [address] 7 [place] [address] Care Team Providers Care Luggage Attendant Name Role Phone Isha Etsrada MD Primary Care Provider [phone] Reason for Visit * Reason Comments Pre-visit Planning (Unable to reach for PVP screening, LVM) Encounter Details Date Type Department Care Team ([facility] st Contact Info) Description 05/02/2024 Patient Outreach [facility] [address] [place], [place] [phone] Isha Estrada MD [address] [place], [place] [phone] Pre-visit Planning ((Unable to reach for PVP [...] Description 05/13/2024 10:30 AM EST Office Visit [facility] [address] [place] [address] Isha Estrada MD [address] [place] [address] documented as of this encounter Visit Diagnoses Not on filedocumented in this encounter Additional Health Concerns Assessment Noted Time PHQ-9 Depression Total Score: 0 02/12/20 2:02 PM EST documented as of this encounter Care Teams Luggage Attendant Relationship Specialty Start Date End Date Isha Estrada MD [address] [place] [address] PCP - General Family Medicine 12/04/22 documented as of this encounter
--- OUTSIDE RECORDS SUMMARY | 2024-05-04 14:31 | XMS_ITS | Clinical Summary ---
Author Organization [employer] Address [address] [place] [address] 7t [place] [address] Care Team Providers Care Safety Fire Boss Name Role Phone Isha Estrada MD Primary Care Provider [phone] Allergies No known active allergies Medications triamcinolone [...] Department Care Team Description 05/02/2024 Patient Outreach [facility] [address] [place] [address] Isha Estrada MD Pre-visit Planning ((Unable to reach for PVP screening, LVM)) 04/07/2024 Orders Only [facility] External Provider, [facility] 03/17/2024 Patient Outreach [facility] [address] [place] [address] Isha Estrada MD Pre-visit Planning ((Unable to reach for PVP screening, LVM)) 02/14/2024 Refill [facility] [address] [place] [address] Isha Estrada MD from Last 3 Months [...] Description 05/13/2024 10:30 AM EST Office Visit [facility] [address] [place] [address] Isha Estrada MD [address] [place] [address] Health Maintenance Due Date Last Done Comments [...] Laterality Modality Upper Extremities, Hand Left [facility] 04/07/2024 9:16 PM EST Narrative 04/07/2024 9:18 PM EST ? [facility] ?[address] ?[place] [address] ?XRay Report ? Signed ? Patient: Malik,Andrae ?MR#: [id number] ?? 200 ? : 2005 ?Acct:[id number] ? Age/Sex: 18 / M ?ADM Date: 04/07/24 ? Loc: HO.ED ? Attending Dr: ? Ordering Physician: Karo Chavez NP ?? Date of Service: 04/07/24 ?? Procedure(s): XR hand LT min 3V ?? Accession Number(s): [id number] ? cc: Isha Estrada; Karo Chavez NP [...] ? DD/ 15 ? TD/TT: 04/07/242115 ? Technical Solutions Consultant: ? Procedure Note Linda Horn - 04/07/[address] [address] XRay Report Signed Patient: Marce MalikYissel#: [id number] 200 : 2005Acct:[id number] Age/Sex: 18 / MADM Date: 04/07/24 Loc: HO.ED Attending Dr: Ordering Physician: Karo Chavez NP Date of Service: 04/07/24 Procedure(s): XR hand LT min 3V Accession Number(s): [id number] cc: Isha Estrada; Karo Chavez NP CLINICAL [...] in OV> 04/07/242116 DD/ 15 TD/TT: 04/07/242115 Technical Solutions Consultant: [facility] External Provider IMG XR PROCEDURES Edited Result - Final * (ABNORMAL) Lipid Panel, Standard (02/17/2023 9:09 AM EST) Triglycerides 171(H) <150 mg/dL [facility] Comment:Desirable Triglyceri de: less than 90 mg/dLBorderline High Triglyceride: 90-129 mg/dLHigh Triglyceride: greater than 130 mg/dL Cholesterol 151 <200 mg/dL [facility] Comment:Desirable Cholestero l: less than 170 mg/dLBorderline High Cholesterol: 170-199 mg/dLHigh Cholesterol: greater than 200 mg/dL LDL Cholesterol Calculated 77 <100 mg/dL [facility] Comment:Desirable LDL: less than 110 mg/dLBorderline LDL: 110-129 mg/dLHigh LDL: greater than or equal to 130 mg/dL HDL Cholesterol 40(L) >40 mg/dL [facility] Comment:Desirable HDL: grea ter than 45 mg/dLBorderline HDL: 40-45 mg/dLLow HDL: less than 40 mg/dL Note: This HDL assay may give artificially low results in patients with liver disease. Blood Venous blood specimen / Unknown 02/17/2023 9:09 AM EST 02/17/2023 11:14 AM EST us Isha Estrada MD LAB BLOOD ORDERABLES Final Res ult [facility] [address] [place] [address] [phone] from Last 3 Months or Most Recently Relevant to Health Maintenance [facility] [employer] Care Teams Safety Fire Boss Relationship Specialty Start Date End Date Isha Estrada MD [address] [place] [phone] PCP - General Family Medicine 12/04/22
--- OUTSIDE RECORDS SUMMARY | 2024-05-04 14:32 | XMS_ITS | Encounter Summary ---
Author Organization [employer] Address [address] [place] [address] 7t [place] [address] Care Team Providers Care Manager Quality Improvement Name Role Phone Isha Estrada MD Primary Care Provider Encounter Details Date Type Department Care Team (Late st Contact Info) Description 04/07/2024 Orders Only [facility] External Provider, [facility] Social History Tobacco Use Types Packs/Day Years [...] t he electric, gas, oil or water [employer] threatened to shut off services in your [...] Description 05/13/2024 10:30 AM EST Office Visit [facility] [address] [place] [address] Isha Estrada MD [address] [place] [address] documented as of this encounter Procedures Procedure Name Priority Date/Time Associated Diagnosis Comments XR HAND 3+ VIEWS LEFT Routine 04/07/2024 9:16 PM EST documented in this encounter Results * XR Hand 3+ Views Left (04/07/2024 9:16 PM EST) Anatomical Region Laterality Modality Upper Extremities, Hand Left Radiogra phic Imaging 04/07/2024 9:16 PM EST Narrative 04/07/2024 9:18 PM EST ? [facility] ?[address] ?[place] [address] ?XRay Report ? Signed ? Patient: Malik,Andrae ?MR#: [id number] ?? 200 ? : 2005 ?Acct:[id number] ? Age/Sex: 18 / M ?ADM Date: 01/09/25 ? Loc: HO.ED ? Attending Dr: ? Ordering Physician: Kathy,Karo LAUNDRY PRESS OPERATOR ?? Date of Service: 04/07/24 ?? Procedure(s): XR hand LT min 3V ?? Accession Number(s): [id number] ? cc: Isha Estrada; Karo Chavez LAUNDRY PRESS OPERATOR ? CLINICAL HISTORY: tenderness over 4th metacarpal, [...] ? DD/ 15 ? TD/TT: 04/07/242115 ? [employer]: ? Procedure Note Linda Horn - 04/07/[address] [address] XRay Report Signed Patient: Lidia Malik#: [id number] 200 : 2005Acct:[id number] Age/Sex: 18 / MADM Date: 04/07/24 Loc: HO.ED Attending Dr: Ordering Physician: Karo Chavez NP Date of Service: 04/07/24 Procedure(s): XR hand LT min 3V Accession Number(s): [id number] cc: Isha Estrada; Karo Chavez NP CLINICAL [...] in OV> 04/07/242116 DD/ 15 TD/TT: 04/07/242115 [employer]: [facility] External Provider IMG XR PROCEDURES Edited Result - Final documented in this encounter Visit Diagnoses Not on filedocumented in this encounter Additional Health Concerns Assessment Noted Time PHQ-9 Depression Total Score: 0 02/12/20 23 2:02 PM EST documented as of this encounter Care Teams Manager Quality Improvement Relationship Specialty Start Date End Date Isha Estrada MD [address] [place] [address] PCP - General Family Medicine 12/04/22 documented as of this encounter
== END 2024-05-04 13:57 | disposition home or self-care (01) ==
PROVIDERS: PCP General Practice
DX: S62.347 Nondisplaced fracture of base of fifth metacarpal bone, left hand (principal)
CPT/HCPCS: 99024

== ENCOUNTER → 2024-05-04 13:13 | Outpatient (BNV) | payer MEDICAID, SELFPAY | PROVIDERS: Visit Provider Specialist | DX: M79.642 Pain in left hand (principal) | CPT/HCPCS: 73130 ==

== ENCOUNTER 2024-05-13 11:16 | Outpatient (REF) | payer MEDICAID, SELFPAY ==
--- OUTSIDE RECORDS SUMMARY | 2024-05-13 12:10 | XMS_ITS | Encounter Summary ---
Author Organization [employer] Address [address] [place] [address] 7t [place] [address] Care Team Providers Care Credit Administration Specialist Name Role Phone Isha Estrada MD Primary Care Provider [phone] Encounter Details Date Type Department Care Team (Latest Contact Info) Description 05/13/2024 Travel Social History Tobacco Use Types Packs/Day Years Used Date Smoking Tobacco: Never Passive Smoke Exposure: Never Smokeless Tobacco: Never Alcohol Use Standard Drinks/Week Comments Never 0 (1 standard drink = 0.6 oz pur e alcohol) Depression Answer Date Recorded Patient Health Questionnaire-9 [...] as of this encounter Plan of Treatment Not on file documented as of this encounter Visit Diagnoses Not on filedocumented in this encounter Additional Health Concerns Assessment Noted Time PHQ-9 Depression Total Score: 0 02/12/20 2:02 PM EST documented as of this encounter Care Teams Credit Administration Specialist Relationship Specialty Start Date End Date Isha Estrada MD [address] [place] [address] PCP - General Family Medicine 12/04/22 documented as of this encounter
--- OUTSIDE RECORDS SUMMARY | 2024-05-13 12:10 | XMS_ITS | Clinical Summary ---
Author Organization [employer] Address [address] [place] [address] 7t [place] [address] Care Team Providers Care Exchange Floor Manager Name Role Phone Isha Estrada MD Primary Care Provider [phone] Allergies No known active allergies Medications triamcinolone [...] FOR SLEEP 90 tablet 3 4 Active tretinoin (Retin-A) 0.05 % cream Apply topically at bedtime. 45 g 3 5 05/13/19 26 Active Active Problems Problem Noted Date Diagnosed [...] Encounters Date Type Department Care Team Description 05/13/2024 10:30 AM EST Office Visit [address] [address] Isha Estrada MD Dietary counseling; Exercise counseling; Class 2 severe obesity with serious comorbidity and body mass index (BMI) of 37.0 to 37.9 in adult, unspecified obesity type (CMS/[facility]); Autistic disorder 05/13/2024 Travel 05/02/2024 Patient Outreach [address] [address] Isha Estrada MD Pre-visit Planning ((Unable to reach for PVP screening, LVM)) 04/07/2024 Orders Only [facility] External Provider, [facility] 03/17/2024 Patient Outreach [address] [address] Isha Estrada MD Pre-visit Planning ((Unable to reach for PVP screening, LVM)) 02/14/[address] [address] Isha Estrada MD from Last 3 Months [...] 02/18/2013 MMR 07/04/2008,09/11/2004 Meningococcal MCV4P ACYW-135 02/21/2020,08/17/19 15 Pfizer Covid-19 Vaccine 12+ 02/11/2023,,07/25/2020 Pneumococcal Conjugate [...] Sign Reading Time Taken Comments Blood Pressure 145/83 05/13/2024 10:25 AM EST Pulse 99 05/13/2024 10:25 AM EST Temperature 36.8 ??C (98.2 ??F) 05/13/2024 10:[address] Respiratory Rate 18 05/13/2024 10:25 AM EST Oxygen Saturation 98% 05/13/2024 10:25 AM EST Inhaled Oxygen Concentration - - Weight 101 kg (222 lb 6 oz) 05/13/2024 10:25 AM EST Height 165.1 cm (5' 5 ) 05/13/2024 10:25 AM EST Body Mass Index 37.01 05/13/2024 10:25 AM EST Plan of Treatment Health Maintenance Due Date Last Done Comments Chlamydia and Gonorrhea Screening 2005 HIV Screening 2005 Hepatitis A Vaccines (2 of 2 - 2-dose series) 08/18/2013 02/18/2013 Family Planning (PISQ) 07/15/2018 Hepatitis C Screening 07/15/2021 HPV Vaccines (3 - Male 3-dose series) 05/06/2023 02/11/2023, 07/06/2020 COVID-19 Vaccine ( season) 2023 02/11/2023, 08/15/2020, 07/25/2020 Influenza Vaccine (#1) 2023 , 01/01/2022, 12/01/2020, Additional history exists Depression Screening 02/12/2024 02/11/2023, 02/12/20 23 SDOH Screening 02/12/2024 02/11/2023 DTaP/Tdap/Td Vaccines (7 - Td or Tdap) 08/16/2024 08/16/2014, 07/04/2008, 01/01/2005, Additional history exists Alcohol/Substance Use Screening 05/13/2025 05/13/2024 Tobacco Screening 05/13/2025 05/13/2024 Lipid Panel 02/18/2028 02/17/2023, 07/17/2020 Zoster Vaccines [...] EST Narrative 04/07/2024 9:18 PM EST ? [facility] ?[address] ?[place] [address] ?XRay Report ? Signed ? Patient: Malik,Andrae ?MR#: [id number] ?? 200 ? : 2005 ?Acct:[id number] ? Age/Sex: 18 / M ?ADM Date: 04/07/24 ? Loc: HO.ED ? Attending Dr: ? Ordering Physician: Karo Chavez NP ?? Date of Service: 04/07/24 ?? Procedure(s): XR hand LT min 3V ?? Accession Number(s): [id number] ? cc: Isha Estrada; Karo Chavez NP [...] DD/ 15 ? TD/TT: 04/07/242115 ? Manager Ct: ? Procedure Note Linda Horn - 04/07/[address] [address] XRay Report Signed Patient: Lidia Malik#: [id number] 200 : 2005Acct:[id number] Age/Sex: 18 / MADM Date: 04/07/24 Loc: HO.ED Attending Dr: Ordering Physician: Karo Chavez NP Date of Service: 04/07/24 Procedure(s): XR hand LT min 3V Accession Number(s): [id number] cc: Isha Estrada; Karo Chavez NP CLINICAL [...] OV> 04/07/242116 DD/ 15 TD/TT: 04/07/242115 Manager Ct: [facility] External Provider IMG XR PROCEDURES Edited Result - Final * (ABNORMAL) Lipid Panel, Standard (02/17/2023 9:09 AM EST) Triglycerides 171(H) <150 mg/dL [facility] Comment:Desirable Triglyceri de: less than 90 mg/dLBorderline High Triglyceride: 90-129 mg/dLHigh Triglyceride: greater than 130 mg/dL Cholesterol 151 <200 mg/dL [facility] Comment:Desirable Cholestero l: less than 170 mg/dLBorderline High Cholesterol: 170-199 mg/dLHigh Cholesterol: greater than 200 mg/dL LDL Cholesterol Calculated 77 <100 mg/dL [facility] Comment:Desirable LDL: less than 110 mg/dLBorderline LDL: 110-129 mg/dLHigh LDL: greater than or equal to 130 mg/dL HDL Cholesterol 40(L) >40 mg/dL [facility] Comment:Desirable HDL: great er than 45 mg/dLBorderline HDL: 40-45 mg/dLLow HDL: less than 40 mg/dL Note: This HDL assay may give artificially low results in patients with liver disease. Blood Venous blood specimen / Unknown 02/17/2023 9:09 AM EST 02/17/2023 11:14 AM EST us Isha Estrada MD LAB BLOOD ORDERABLES Final Res ult [facility] [address] [place] [address] [phone] from Last 3 Months or Most Recently Relevant to Health Maintenance Insurance [email or web address] Care Teams Exchange Floor Manager Relationship Specialty Start Date End Date Isha Estrada MD [address] [place] [address] PCP - General Family Medicine 12/04/22
--- OUTSIDE RECORDS SUMMARY | 2024-05-13 12:10 | XMS_ITS | Encounter Summary ---
Author Organization [employer] Address [address] [facility] 7t [place] [address] Care Team Providers Care Departmental Shipping Clerk Name Role Phone Isha Estrada MD Primary Care Provider [phone] Encounter Details Date Type Department Care Team (Late st Contact Info) Description 05/13/2024 10:30 AM EST Office Visit [facility] [address] [place], [place] [phone] Isha Estrada MD [address] [place], [place] [phone] Dietary counseling; Exercise counseling; Class 2 severe obesity with serious comorbidity and body mass index (BMI) of 37.0 to 37.9 in adult, unspecified obesity type (CMS/HCC); Autistic disorder Social History Tobacco Use Types Packs/Day Years [...] AM EST documented as of this encounter Last Filed Vital Signs Vital Sign Reading [...] Mass Index 37.01 05/13/2024 10:25 AM EST documented in this encounter Plan of Treatment Scheduled Orders Name Type Priority Associated Diagnoses Orde r Schedule TSH W/Reflex to FT4 Lab Routine Class 2 severe obesity with serious comorbidity and body mass index (BMI) of 37.0 to 37.9 in adult, unspecified obesity type Expected: 05/13/2024 (Approximate), Expires: 05/13/2025 documented as of this encounter Visit Diagnoses Diagnosis Dietary counseling Dietary surveillance and counseling Exercise counseling Class 2 severe obesity with serious comorbidity and body mass index (BMI) of 37.0 to 37.9 in adult, unspecified obesity type (CMS/HCC) Autistic disorder Autistic disorder, current or active state documented in this encounter Additional Health Concerns Assessment Noted Time PHQ-9 Depression Total Score: 0 02/12/20 23 2:02 PM EST documented as of this encounter Care Teams Departmental Shipping Clerk Relationship Specialty Start Date End Date Isha Estrada MD [address] [place] [address] PCP - General Family Medicine 12/04/22 documented as of this encounter
--- OUTSIDE RECORDS SUMMARY | 2024-05-13 12:10 | XMS_ITS | Encounter Summary ---
Author Organization [employer] Address [address] [place] [address] 7t [place] [address] Care Team Providers Care Balance Clerk Name Role Phone Isha Estrada MD Primary Care Provider [phone] Reason for Visit * Reason Comments Pre-visit Planning (Unable to reach for PVP screening, LVM) Encounter Details Date Type Department Care Team ([facility] st Contact Info) Description 05/02/2024 Patient Outreach [facility] [address] [place], [place] [phone] Isha Estrada MD [address] [place], [place] [phone] Pre-visit Planning ((Unable to reach for PVP [...] documented in this encounter Plan of Treatment Not on file documented as of this encounter Visit Diagnoses Not on filedocumented in this encounter Additional Health Concerns Assessment Noted Time PHQ-9 Depression Total Score: 0 02/12/20 2:02 PM EST documented as of this encounter Care Teams Balance Clerk Relationship Specialty Start Date End Date Isha Estrada MD [address] [place] [address] PCP - General Family Medicine 12/04/22 documented as of this encounter
--- OUTSIDE RECORDS SUMMARY | 2024-05-13 12:10 | XMS_ITS | Encounter Summary ---
Author Organization [employer] Address [address] [place] [address] 7t [place] [address] Care Team Providers Care Wallpaper Cleaner Name Role Phone Theron Melgar Primary Care Provider Unavail Isha Alvares MD Primary Care Provider [phone] Encounter Details Date Type Department Care Team (Late st Contact Info) Description 03/14/2022 Orders Only [facility] [address] [place], [place] [phone] Anupama Philip MD [address] [place], [place] [phone] Social History Tobacco Use Types Packs/Day Years [...] on file documented as of this encounter Procedures Procedure Name Priority Date/Time Associated Diagnosis Comments GROSS AND MICROSCOPIC LEVEL 3 Routine 03/04/2023 7:56 AM EST GRAM STAIN Routine 02/10/2023 9:40 AM EST documented in this encounter Results * Gross and Microscopic Level 3 (03/04/2023 7:56 AM EST) 03/04/2023 7:56 AM EST 03/04/2023 8:48 AM EST [facility] - 03/06/2023 1:10 PM EST ----- ------- Name: Andrae Malik ?Age/Sex: 17/M ? : 2005 Unit#: [id number] ?? Attend Dr: Ronny Kilpatrick MD ?Re03/04/23 ?Status: DEP SDC ? Location: HO.SSS ?Disch: ? ----- ------- SPEC : [id number] ? RECD: 03/04/23 ? STATUS: ??SOUT ? REQ NUM: [id number] ? ANTHONY: 03/04/23 ? SUBM DR: Ronny Kilpatrick MD ? ENTERED: ??03/04/23 ?SP TYPE: Surgical ? OTHR DR: [facility] ? ORDERED: ??Gross Micro L3 ? [...] subcutaneous fat is dense, edematous and fibrotic. ??Flakeboard Line Tender sections are submitted in a cassette labeled A1. CEDS Copies To: ?? [facility] ?? [address] ?? [place] [address] ? Ronny Kilpatrick MD ?? [address] [place] [address] ?? [place] [address] ?? [phone] ----- ------- Signed (signature on file) Valdo Gould MD 03/06/23 1310 ? ----- ------- ? END OF REPORT ? Generic External Data Provider LAB CYTOLOGY ORDE RABLES Final Result Performing Organization Address [facility] de Phone Number [facility] [address] [place] [phone] * Gram stain (02/10/2023 9:40 AM EST) 02/10/2023 9:40 AM EST 02/10/2023 12:04 PM EST Comment:Pilonidal Narrative [facility] - 02/12/2023 8:41 AM EST Gram stain results: 3+ polys 4+ Gram-positive cocci 3+ Gram-negative rods Streptococcus viridans group Quant Org ID 4+ Susc N/A Susceptibility not routinely performed on this isolate. Specimen Source: Pilonidal Cyst Generic External Data Provider LAB MICROBIOLOGY - GENERAL ORDERABLES Final Result Performing Organization Address [facility] de Phone Number [facility] [address] [place] [phone] documented in this encounter Visit Diagnoses Not on filedocumented in this encounter Care Teams Wallpaper Cleaner Relationship Specialty Start Date End Date Theron Melgar AGNP PCP - General Family Medicine 02/24/22 12/03/22 Isha Estrada MD [address] [place] [address] PCP - General Family Medicine 12/04/22 documented as of this encounter
[2024-05-13 14:00] LABS: TSH reflex Free T4 2.48 uIU/mL (0.32-4.0)
== END 2024-05-13 11:17 | disposition home or self-care (01) ==
LOC: HO.HHCL 11:16
PROVIDERS: Visit Provider General Practice
DX: E66.812 Obesity, class 2 (principal); E66.01 Morbid (severe) obesity due to excess calories; Z68.37 Body mass index [BMI] 37.0-37.9, adult
CPT/HCPCS: 36415; 84443

== ENCOUNTER 2024-06-01 08:24 | Outpatient (REF) | payer MEDICAID, SELFPAY ==
--- NOTE | ~2024-06-01 | XR_ITS ---
EXAMINATION: XR HAND, LEFT CLINICAL INFORMATION: M79.642 - Pain in left hand COMPARISON: May 04, 2024. TECHNIQUE: PA, lateral, and oblique views of the left hand. FINDINGS: Old traumatic deformity in the proximal diaphysis and base of the fifth metacarpal. Carpal bones are intact. Distal radius and ulna are intact. Mild degenerative changes in the proximal and distal interphalangeal joints of the fourth fifth and to a lesser extent second and third digits. No lytic or blastic lesions. No subcutaneous emphysema. XR/XR hand LT min 3V IMPRESSION: Old traumatic deformity proximal diaphysis and base, fifth metacarpal. Degenerative changes proximal and distal interphalangeal joints of the digits. Electronically signed by: Nadeem Masters MD 06/06/2024 08:57 AM EDT
--- OUTSIDE RECORDS SUMMARY | 2024-06-01 08:54 | XMS_ITS | Encounter Summary ---
Author Organization [email or web address] Address [address] [facility] 7t [place] [address] Care Team Providers Care Integration Software Developer Name Role Phone Isha Estrada MD Primary Care Provider [phone] Encounter Details Date Type Department Care Team [...] Care Team (Late st Contact Info) Description 06/09/2024 10:00 AM EDT Clinical Support [facility] MED[facility]INE [address] [place] [address] documented as of this encounter Visit Diagnoses Not on filedocumented in this encounter Additional Health Concerns Assessment Noted Time PHQ-9 Depression Total Score: 0 02/12/20 23 2:02 PM EST documented as of this encounter Care Teams Integration Software Developer Relationship Specialty Start Date End Date Isha Estrada MD [address] [place] [address] PCP - General Family Medicine 12/04/22 documented as of this encounter
--- OUTSIDE RECORDS SUMMARY | 2024-06-01 08:54 | XMS_ITS | Clinical Summary ---
Author Organization [employer] Address [address] [facility] 7t [place] [address] Care Team Providers Care Napkin Machine Operator Name Role Phone Isha Estrada MD Primary Care Provider [phone] Allergies No known active allergies Medications risperiDONE (RisperDAL) 1 MG tablet Take 1 mg by mouth at bedtime. 01/30/20 23 Active hydrOXYzine HCl (Atarax) 25 MG tablet TAKE 1 TABLET BY MOUTH ONCE DAILY AT BEDTIME NEEDED FOR SLEEP 90 tablet 3 02/15/20 24 Active tretinoin (Retin-A) 0.05 % cream Apply topically at bedtime. 45 g 3 05/13/19 25 026 Active escitalopram (Lexapro) 5 MG tablet Take 1 tablet by mouth Once per day. 05/03/19 25 Active famotidine (Pepcid) 20 MG tablet Take 1 tablet (20 mg) by mouth at bedtime. 90 tablet 3 05/16/19 25 026 Active triamcinolone (Kenalog) 0.1 % ointmentIndica tions:Rash of both hands Apply topically 2 times daily. 30 g 05/14/19 23 025 Discontinued(Th erapy completed) propranolol (Inderal) 10 MG tablet TAKE 1 TABLET BY MOUTH TWICE A DAY NEEDED FOR SOCIAL ANXIETY 11/27/19 23 025 Discontinued( erapy completed) famotidine (Pepcid) 20 MG tablet Take 1 tablet (20 mg) by mouth at bedtime. 90 tablet 3 02/13/20 23 025 Discontinued(Re order (will not trigger notification to Pharmacy)) Active Problems Problem Noted Date Diagnosed Date Acne vulgaris 05/16/2024 Gastroesophageal reflux disease without esophagi tis 02/12/2023 Assessment & Plan (02/12/2023 10:22 AM [...] Description 05/13/2024 10:30 AM EST Office Visit [facility] [address] [place] [phone] Isha Estrada MD Autistic disorder (Primary Dx); Dietary counseling; Exercise counseling; Class 2 severe obesity with serious comorbidity and body mass index (BMI) of 37.0 to 37.9 in adult, unspecified obesity type ([facility]); Acne vulgaris; Elevated blood pressure reading in office without diagnosis of hypertension 05/13/2024 Travel 05/02/2024 Patient Outreach [facility] [address] [place] [address] Isha Estrada MD Pre-visit Planning ((Unable to reach for PVP screening, LVM)) 04/07/2024 Orders Only [facility] External Provider, [facility] 03/17/2024 Patient Outreach [facility] [address] [place] [address] Isha Estrada MD Pre-visit Planning ((Unable to reach for PVP screening, LVM)) from Last 3 Months Immunizations Name Administration [...] pur e alcohol) Alcohol Answer Date Recorded How often do you have a drink containing alcohol ? 0 05/16/2024 How many drinks containing a lcohol do you have on a typical day when you are drinking? 0 05/16/2024 How often do you have six or more drinks on one occasion? 0 05/16/2024 Depression Answer Date Recorded Patient Health Questionnaire-9 [...] things needed for daily living? No 02/02/2023 Intimate Partner Violence Answer Date R ecorded Within the last year, have y ou been afraid of your partner or ex-partner? 2 05/16/2024 Within the last year, have y ou been humiliated or emotionally abused in other ways by your partner or ex-partner? 2 Within the last year, have y ou been kicked, hit, slapped, or otherwise physically hurt by your partner or ex-partner? 2 05/16/2024 Within the last year, have y ou been raped or forced to have any kind of sexual activity by your partner or ex-partner? 2 05/16/2024 Utilities Answer Date Recorded In the past 12 months, has t he electric, gas, oil or water company threatened to shut off services in your home? No 02/02/2023 Depression Answer Date Recorded Patient Health Questionnaire-2 Score 0 02/11/2023 Internet Access Answer Date Recorded Internet Access Q1 Yes 05/16/2024 Internet Access Q2 Not on file 05/16/2024 Sex and Gender Information Value Date Recorded [...] 05/13/2024 10:25 AM EST Plan of Treatment Upcoming Encounters Date Type Department Care Team (Late st Contact Info) Description 06/09/2024 10:00 AM EDT Clinical Support [address] [address] Health Maintenance Due Date Last Done Comments Chlamydia and Gonorrhea Screening 2005 HIV Screening 2005 Hepatitis A Vaccines (2 of 2 - 2-dose series) 08/18/2013 02/18/2013 Hepatitis C Screening 07/15/2021 HPV Vaccines (3 - Male 3-dose series) 05/06/2023 02/11/2023, 07/06/2020 COVID-19 Vaccine ( season) 2023 02/11/2023, 08/15/2020, 07/25/2020 Influenza Vaccine (#1) 2023 3, 01/01/2022, 12/01/2020, Additional history exists Depression Screening 02/12/2024 02/11/2023, 02/12/20 SDOH Screening 02/12/2024 02/11/2023 DTaP/Tdap/Td Vaccines (7 - Td or Tdap) 08/16/2024 08/16/2014, 07/04/2008, 01/01/2005, Additional history exists Alcohol/Substance Use Screening 05/13/2025 05/13/2024 Family Planning (PISQ) 05/16/2025 05/16/2024 Tobacco Screening 05/16/2025 05/16/2024 Lipid Panel 02/18/2028 02/17/2023, 07/17/2020 Zoster Vaccines [...] Procedure Name Priority Date/Time Associated Diagnosis Comments TSH W/REFLEX TO FT4 Routine 05/13/2024 1 1:18 AM EST Class 2 severe obesity with serious comorbidity and body mass index (BMI) of 37.0 to 37.9 in adult, unspecified obesity type ([facility]) XR HAND 3+ VIEWS LEFT Routine 04/07/2024 9:16 PM EST LIPID PANEL, STANDARD Routine 02/17/2023 9:09 AM EST Routine history and physical examination of adult from Last 3 Months or Most Recently Relevant to Health Maintenance Results * TSH W/Reflex to FT4 (05/13/2024 11:18 AM EST) TSH reflex Free T4 2.48 0.32 - 4.0 uIU/mL [facility] Blood Venous blood specimen / Unknown 05/13/2024 11:18 AM EST 05/13/2024 1:10 PM EST us Isha Estrada MD LAB BLOOD ORDERABLES Final Res ult [facility] [address] [place] [address] [phone] * XR Hand 3+ Views Left (04/07/2024 9:16 PM EST) Anatomical Region Laterality Modality Upper Extremities, Hand Left Radiogra phic Imaging 04/07/2024 9:16 PM EST Narrative 04/07/2024 9:18 PM EST ? [facility] ?[address] ?[place] [address] ?XRay Report ? Signed ? Patient: Andrae Malik ?MR#: [id number] ?? 200 ? : 2005 ?Acct:[id number] ? Age/Sex: 18 / M ?ADM Date: 04/07/24 ? Loc: HO.ED ? Attending Dr: ? Ordering Physician: Karo Chavez NP ?? Date of Service: 04/07/24 ?? Procedure(s): XR hand LT min 3V ?? Accession Number(s): [id number] ? cc: Isha Estrada; Karo Chavez NP [...] ? DD/ 15 ? TD/TT: 04/07/242115 ? Rn Spine: ? Procedure Note Donotfidencioter, Image - 04/07/[address] [address] XRay Report Signed Patient: Lidia Malik#: [id number] 200 : 2005Acct:[id number] Age/Sex: 18 / MADM Date: 04/07/24 Loc: HO.ED Attending Dr: Ordering Physician: Karo Chavez NP Date of Service: 04/07/24 Procedure(s): XR hand LT min 3V Accession Number(s): [id number] cc: Isha Estrada; Karo Chavez NP CLINICAL [...] in OV> 04/07/242116 DD/ 15 TD/TT: 04/07/242115 Rn Spine: [facility] External Provider IMG XR PROCEDURES Edited Result - Final * (ABNORMAL) Lipid Panel, Standard (02/17/2023 9:09 AM EST) Triglycerides 171(H) <150 mg/dL [facility] Comment:Desirable Triglyceri de: less than 90 mg/dLBorderline High Triglyceride: 90-129 mg/dLHigh Triglyceride: greater than 130 mg/dL Cholesterol 151 <200 mg/dL [facility] Comment:Desirable Cholestero l: less than 170 mg/dLBorderline High Cholesterol: 170-199 mg/dLHigh Cholesterol: greater than 200 mg/dL LDL Cholesterol Calculated 77 <100 mg/dL [facility] Comment:Desirable LDL: less than 110 mg/dLBorderline LDL: 110-129 mg/dLHigh LDL: greater than or equal to 130 mg/dL HDL Cholesterol 40(L) >40 mg/dL [facility] Comment:Desirable HDL: great er than 45 mg/dLBorderline HDL: 40-45 mg/dLLow HDL: less than 40 mg/dL Note: This HDL assay may give artificially low results in patients with liver disease. Blood Venous blood specimen / Unknown 02/17/2023 9:09 AM EST 02/17/2023 11:14 AM EST us Isha Estrada MD LAB BLOOD ORDERABLES Final Res ult [facility] [address] [place], [place] [phone] from Last 3 Months or Most Recently Relevant to Health Maintenance Insurance Care Teams Napkin Machine Operator Relationship Specialty Start Date End Date Isha Estrada MD [address] [place] [phone] PCP - General Family Medicine 12/04/22
--- OUTSIDE RECORDS SUMMARY | 2024-06-01 08:54 | XMS_ITS | Encounter Summary ---
Author Organization [employer] Address [address] [facility] 7t [place] [address] Care Team Providers Care Artificial Flower Maker Name Role Phone Isha Estrada MD Primary Care Provider [phone] Reason for Visit * Reason Comments Pre-visit Planning (Unable to reach for PVP screening, LVM) Encounter Details Date Type Department Care Team ([facility] st Contact Info) Description 05/02/2024 Patient Outreach [facility] [address] [place], [place] [phone] Isha Estrada MD [address] [place], [place] [phone] Pre-visit Planning ((Unable to reach for PVP [...] Description 06/09/2024 10:00 AM EDT Clinical Support [facility] [address] [place] [address] documented as of this encounter Visit Diagnoses Not on filedocumented in this encounter Additional Health Concerns Assessment Noted Time PHQ-9 Depression Total Score: 0 02/12/20 2:02 PM EST documented as of this encounter Care Teams Artificial Flower Maker Relationship Specialty Start Date End Date Isha Estrada MD [address] [place] [address] PCP - General Family Medicine 12/04/22 documented as of this encounter
--- OUTSIDE RECORDS SUMMARY | 2024-06-01 08:54 | XMS_ITS | Encounter Summary ---
Author Organization [employer] Address [address] [facility] 7t [place] [address] Care Team Providers Care Department Store General Manager Name Role Phone Theron Melgar ZENON Primary Care Provider Unavail Isha Alvares MD Primary Care Provider [phone] Encounter Details Date Type Department Care Team (Late st Contact Info) Description 03/14/2022 Orders Only [facility] [address] [place] [address] Anupama Philip MD [address] [place] [address] Social History Tobacco Use Types Packs/Day Years [...] Description 06/09/2024 10:00 AM EDT Clinical Support [facility] [address] [place] [phone] documented as of this encounter Procedures Procedure Name Priority Date/Time Associated Diagnosis Comments GROSS AND MICROSCOPIC LEVEL 3 Routine 03/04/2023 7:56 AM EST GRAM STAIN Routine 02/10/2023 9:40 AM EST documented in this encounter Results * Gross and Microscopic Level 3 (03/04/2023 7:56 AM EST) 03/04/2023 7:56 AM EST 03/04/2023 8:48 AM EST Narrative [facility] - 03/06/2023 1:10 PM EST ----- ------- Name: MalikAndrae ?Age/Sex: 17/M ? : 2005 Unit#: [id number] ?? Attend Dr: Ronny Kilpatrick MD ?Re03/04/23 ?Status: DEP SDC ? Location: HO.SSS ?Disch: ? ----- ------- SPEC : [id number] ? RECD: 03/04/23 ? STATUS: ??SOUT ? REQ NUM: [id number] ? ANTHONY: 03/04/23-755 ? SUBM DR: Ronny Kilpatrick MD ? ENTERED: ??03/04/23 ?SP TYPE: Surgical ? OTHR : [facility] ? ORDERED: ??Gross Micro L3 ? Diagnosis [...] subcutaneous fat is dense, edematous and fibrotic. ??Part Maker sections are submitted in a cassette labeled A1. CEDS Copies To: ?? [facility] ?? [address] ?? [place] [address] ? Ronny Kilpatrick MD ?? [address] [place] [address] ?? [place] [address] ?? [phone] ----- ------- Signed (signature on file) Valdo Gould MD 03/06/23 1310 ? ----- ------- ? END OF REPORT ? Generic External Data Provider LAB CYTOLOGY ORDE RABLES Final Result Performing Organization Address [facility] Co de Phone Number [facility] [address] [place] [phone] * Gram stain (02/10/2023 9:40 AM EST) 02/10/2023 9:40 AM EST 02/10/2023 12:04 PM EST Comment:Pilonidal Narrative [facility] - 02/12/2023 8:41 AM EST Gram stain results: 3+ polys 4+ Gram-positive cocci 3+ Gram-negative rods Streptococcus viridans group Quant Org ID 4+ Susc N/A Susceptibility not routinely performed on this isolate. Specimen Source: Pilonidal Cyst Generic External Data Provider LAB MICROBIOLOGY - GENERAL ORDERABLES Final Result Performing Organization Address [facility] Co de Phone Number [facility] [address] [place], [place] [phone] documented in this encounter Visit Diagnoses Not on filedocumented in this encounter Care Teams Department Store General Manager Relationship Specialty Start Date End Date Theron Melgar AGNP PCP - General Family Medicine 02/24/22 12/03/22 Isha Estrada MD [address] [place] [address] PCP - General Family Medicine 12/04/22 documented as of this encounter
--- OUTSIDE RECORDS SUMMARY | 2024-06-01 08:54 | XMS_ITS | Encounter Summary ---
Author Organization [employer] Address [address] 7[address] [place] [address] Care Team Providers Care Mine Expert Name Role Phone Isha Estrada MD Primary Care Provider [phone] Encounter Details Date Type Department Care Team (Late st Contact Info) Description 05/13/2024 10:30 AM EST Office Visit [facility] [address] [place] [address] Isha Estrada MD [address] [place] [address] Autistic disorder (Primary Dx); Dietary counseling; Exercise counseling; Class 2 severe obesity with serious comorbidity and body mass index (BMI) of 37.0 to 37.9 in adult, unspecified obesity type (CMS/HCC); Acne vulgaris; Elevated blood pressure reading in office without diagnosis of hypertension Social History Tobacco Use Types Packs/Day Years [...] 10:25 AM EST documented in this encounter Progress Notes * Isha Estrada MD - 05/13/2024 10:30 AM EST SUBJECTIVE: Andrae Malik is a 18 y.o. year old male who presents for chronic disease management and physical exam. Denies recent illness, ER visit, or hospitalization. Acute Concerns: Flu and COVID done at [facility] in Jan 2024, not available on record Interim Updates: 08/2023 outside labs: elevate LDL and AST and high TSH Performed by his psychiatrist L hand fracture, 03/2024 Followed by ortho, transitioned from cast to brace last week Plain films 1. Acute fracture of the base of the 5th metacarpal superimposed on old healed fracture with mild deformity. 2. No dislocation. 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 No pertinent surgical history. No family history on file. Social History Social History Narrative Not on file Review of Systems Constitutional: Negative. HENT: Negative. Respiratory: Negative. Cardiovascular: Negative. Gastrointestinal: Negative. Musculoskeletal: Negative. OBJECTIVE: Vitals: 05/13/24 1025 BP: (!) 145/83 BP Location: Left arm Patient Position: Sitting BP Cuff Size: Adult Pulse: 99 Resp: 18 Temp: 98.2 ??F (36.8 ??C) TempSrc: Temporal SpO2: 98% Weight: 222 lb 6 oz (101 kg) Height: 5' 5 (1.651 m) Physical Exam Vitals and nursing note reviewed. Constitutional: Appearance: Normal appearance. He is normal weight. HENT: Head: Normocephalic and atraumatic. Right Ear: Tympanic membrane, ear canal and external ear normal. Left Ear: Tympanic membrane, ear canal and external ear normal. Nose: Nose normal. Mouth/Throat: Mouth: Mucous membranes are moist. Pharynx: Oropharynx is clear. Cardiovascular: Rate and Rhythm: Normal rate and regular rhythm. Pulses: Normal pulses. Heart sounds: Normal heart sounds. Pulmonary: Effort: Pulmonary effort is normal. Breath sounds: Normal breath sounds. Musculoskeletal: Cervical back: Normal range of motion and neck supple. Skin: General: Skin is warm and dry. Capillary Refill: Capillary refill takes less than 2 seconds. Comments: Acne on his ower cheeks, active pustules and scars Neurological: General: No focal deficit present. Mental Status: He is alert and oriented to person, place, and time. Psychiatric: Mood and Affect: Mood normal. Behavior: Behavior normal. ASSESSMENT/PLAN Problem List Items Addressed This Visit Autistic disorder - Primary Obesity Relevant Orders TSH W/Reflex to FT4 (Completed) Acne vulgaris Other Visit Diagnoses Dietary counseling Exercise counseling Elevated blood pressure reading in office without diagnosis of hypertension Follow Up: 6 months or sooner prn No Known Allergies Current Outpatient Medications: escitalopram (Lexapro) 5 MG tablet, Take 1 tablet by mouth Once per day., Disp: , Rfl: famotidine (Pepcid) 20 MG tablet, Take 1 tablet (20 mg) by mouth at bedtime., Disp: 90 tablet, Rfl:3 hydrOXYzine HCl (Atarax) 25 MG tablet, TAKE 1 TABLET BY MOUTH ONCE DAILY AT BEDTIME NEEDED FOR SLEEP, Disp: 90 tablet, Rfl: 3 risperiDONE (RisperDAL) 1 MG tablet, Take 1 mg by mouth at bedtime., Disp: , Rfl: tretinoin (Retin-A) 0.05 % cream, Apply topically at bedtime., Disp: 45 g, Rfl: 3 documented in this encounter Plan of Treatment Upcoming Encounters Date Type Department Care Team (Late st Contact Info) Description 06/09/2024 10:00 AM EDT Clinical Support [facility] [address] [place] [phone] documented as of this encounter Procedures Procedure Name Priority Date/Time Associated Diagnosis Comments TSH W/REFLEX TO FT4 Routine 05/13/2024 1 1:18 AM EST Class 2 severe obesity with serious comorbidity and body mass index (BMI) of 37.0 to 37.9 in adult, unspecified obesity type (CMS/HCC) documented in this encounter Results * TSH W/Reflex to FT4 (05/13/2024 11:18 AM EST) TSH reflex Free T4 2.48 0.32 - 4.0 uIU/mL [facility] Blood Venous blood specimen / Unknown 05/13/2024 11:18 AM EST 05/13/2024 1:10 PM EST us Isha Estrada MD LAB BLOOD ORDERABLES Final Res ult [facility] [address] [place] [address] [phone] documented in this encounter Visit Diagnoses Diagnosis Autistic disorder- Primary Autistic disorder, current or active state Dietary counseling Dietary surveillance and counseling Exercise counseling Class 2 severe obesity with serious comorbidity and body mass index (BMI) of 37.0 to 37.9 in adult, unspecified obesity type (CMS/HCC) Acne vulgaris Other acne Elevated blood pressure reading in office without diagnosis of hypertension documented in this encounter Additional Health Concerns Assessment Noted Time PHQ-9 Depression Total Score: 0 02/12/20 23 2:02 PM EST documented as of this encounter Care Teams Mine Expert Relationship Specialty Start Date End Date Isha Estrada MD [address] [place] [phone] PCP - General Family Medicine 12/04/22 documented as of this encounter
== END 2024-06-01 08:25 | disposition home or self-care (01) ==
LOC: HO.HOSX 08:24
DX: M79.672 Pain in left foot (principal); S62.347 Nondisplaced fracture of base of fifth metacarpal bone, left hand
CPT/HCPCS: 73130; 99212

== ENCOUNTER 2024-06-01 12:50 | Outpatient (AMB) | payer MEDICAID, SELFPAY ==
[2024-06-01 13:03] VITALS: BMI 36.8
--- NOTE | 2024-06-01 13:03 | A.OFFVIS_ITS ---
Vital Signs 06/01/24 13:03 Height 5 ft 5 in Weight 221 lb BMI 36.8 Handedness Left Intake Visit Reasons: OV - left hand 5th MC fx DOI 04/07/24-w/xray Intake Note: Andrae is a 18 year old left hand dominant male who presents today with his mother for a follow up of his Left 5th Metacarpal Fracture 04/07/2024. Patient was upset and punched a wall, fracturing his hand. At his last visit he was transitioned into a velcro wrist splint. He expresses his left hand feels good. Denies numbness and tingling and pain. He reports he does not feel his ROM is limited. Accompanied by: Mother Allergies No Known Allergies Allergy (Verified 06/01/24 13:04) HPI HPI OV - left hand 5th MC fx DOI 04/07/24-w/xray: Details: Andrae is a 18 year old left hand dominant male who presents today with his mother for a follow up of his Left 5th Metacarpal Fracture 04/07/2024. Patient was upset and punched a wall, fracturing his hand. At his last visit he was transitioned into a velcro wrist splint. He expresses his left hand feels good. Denies numbness and tingling and pain. He reports he does not feel his ROM is limited. [facility] Medical History Eczema Autism Pilonidal abscess Surgical History History of excision of pilonidal cyst (03/04/23) History of wisdom tooth extraction Family History Father Non-Hodgkin lymphoma, Onset Age: 40 Social History Alcohol intake: never Patient Tobacco Use Status: Never used Tobacco Review of Systems Const All systems reviewed & are unremarkable except as noted in HPI and below Physical Exam Vital Signs: BMI result Body Mass Index 36.8 Extrem Other: Patient is alert, oriented, and in no acute distress. Neuro: Normal sensation of the tips of all digits of the left hand at this time Vascular: Cap refill brisk Pain: Patient reports no tenderness to palpation at the level of the fracture of the left 5th metacarpal Minimal discomfort with range of motion ROM: Patient was able to make a closed fist and extend all digits of the left hand fully Skin: No lacerations or abrasions. General: Mild edema noted of the ulnar left hand No ecchymosis, erythema, or evidence of infection. Psych: Appears grossly normal Affect normal Attitude cooperative Results Reviewed Results Reviewed: X-rays obtained in the office today and independently reviewed by me, Carl Lucas PA-C, demonstrate nondisplaced fracture of the left 5th metacarpal base with evidence of interval bony healing. Assessment & Plan Assessment & Plan (1) Nondisplaced fracture of base of fifth metacarpal bone, left hand, sequela: Code(s): S62.347S - Nondisplaced fracture of base of fifth metacarpal bone, left hand, sequela Category: Medical Plan 1. Left 5th metacarpal base fracture Date of injury 04/07/2024 Patient is educated about this condition Patient was educated about the typical recovery course Patient was educated he should continue wearing the Velcro wrist splint with h igh-risk activities, but can discontinue with all others Patient was educated he should continue with 2 lb weight limit in the left hand Patient was amenable to this plan Patient will follow-up in 3-4 weeks with repeat x-rays for reassessment, sooner with any acute concerns Orders: Orders XR hand LT min 3V 06/01/24 M79.642 - Pain in left hand Coding Level of Care Code Global (04309) Diagnoses Nondisplaced fracture of base of fifth metacarpal bone, left hand, sequela S62.347S
--- OUTSIDE RECORDS SUMMARY | 2024-06-01 15:09 | XMS_ITS | Clinical Summary ---
Author Organization [employer] Address [address] [facility] 7t [place] [address] Care Team Providers Care Us Customs And Border Officer Name Role Phone Isha Estrada MD Primary Care Provider [phone] Allergies No known active allergies Medications risperiDONE [...] Description 05/13/2024 10:30 AM EST Office Visit [facility] [address] [place] [phone] Isha Estrada MD Autistic disorder (Primary Dx); Dietary counseling; Exercise counseling; Class 2 severe obesity with serious comorbidity and body mass index (BMI) of 37.0 to 37.9 in adult, unspecified obesity type (CMS/[facility]); Acne vulgaris; Elevated blood pressure reading in office without diagnosis of hypertension 05/13/2024 Travel 05/02/2024 Patient Outreach [facility] [address] [place] [phone] Isha Estrada MD Pre-visit Planning ((Unable to reach for PVP screening, LVM)) 04/07/2024 Orders Only [facility] External Provider, [facility] 03/17/2024 Patient Outreach [facility] [address] [place] [phone] Isha Estrada MD Pre-visit Planning ((Unable to [...] Description 06/09/2024 10:00 AM EDT Clinical Support [address] [address] Health Maintenance Due Date Last Done Comments [...] to 37.9 in adult, unspecified obesity type ([facility]) XR HAND 3+ VIEWS LEFT Routine 04/07/2024 9:16 PM EST LIPID PANEL, STANDARD Routine 02/17/2023 9:09 AM EST Routine history and physical examination of adult from Last 3 Months or Most Recently Relevant to Health Maintenance Results * TSH W/Reflex to FT4 (05/13/2024 11:18 AM EST) TSH reflex Free T4 2.48 0.32 - 4.0 uIU/mL [facility] Blood Venous blood specimen / Unknown 05/13/2024 11:18 AM EST 05/13/2024 1:10 PM EST us Isha Estrada MD LAB BLOOD ORDERABLES Final Res ult [facility] [address] [place] [address] [phone] * XR Hand 3+ Views Left (04/07/2024 9:16 PM EST) Anatomical Region Laterality Modality Upper Extremities, Hand Left Radiogra phic Imaging 04/07/2024 9:16 PM EST Narrative 04/07/2024 9:18 PM EST ? [facility] ?[address] ?[place] [address] ?XRay Report ? Signed ? Patient: Andrae Malik ?MR#: [id number] ?? 200 ? : 2005 ?Acct:[id number] ? Age/Sex: 18 / M ?ADM Date: 04/07/24 ? Loc: HO.ED ? Attending Dr: ? Ordering Physician: Karo Chavez NP ?? Date of Service: 04/07/24 ?? Procedure(s): XR hand LT min 3V ?? Accession Number(s): [id number] ? cc: Isha Estrada; Karo Chavez NP [...] ? DD/ 15 ? TD/TT: 04/07/242115 ? Rehabilitation Therapy Aide: ? Procedure Note Donotfidencioter, Image - 04/07/[address] [address] XRay Report Signed Patient: Lidia Malik#: [id number] 200 : 2005Acct:[id number] Age/Sex: 18 / MADM Date: 04/07/24 Loc: HO.ED Attending Dr: Ordering Physician: Karo Chavez NP Date of Service: 04/07/24 Procedure(s): XR hand LT min 3V Accession Number(s): [id number] cc: Isha Estrada; Karo Chavez NP CLINICAL [...] in OV> 04/07/242116 DD/ 15 TD/TT: 04/07/242115 Rehabilitation Therapy Aide: [facility] External Provider IMG XR PROCEDURES Edited Result - Final * (ABNORMAL) Lipid Panel, Standard (02/17/2023 9:09 AM EST) Triglycerides 171(H) <150 mg/dL [facility] Comment:Desirable Triglyceri de: less than 90 mg/dLBorderline High Triglyceride: 90-129 mg/dLHigh Triglyceride: greater than 130 mg/dL Cholesterol 151 <200 mg/dL [facility] Comment:Desirable Cholestero l: less than 170 mg/dLBorderline High Cholesterol: 170-199 mg/dLHigh Cholesterol: greater than 200 mg/dL LDL Cholesterol Calculated 77 <100 mg/dL [facility] Comment:Desirable LDL: less than 110 mg/dLBorderline LDL: 110-129 mg/dLHigh LDL: greater than or equal to 130 mg/dL HDL Cholesterol 40(L) >40 mg/dL [facility] Comment:Desirable HDL: great er than 45 mg/dLBorderline HDL: 40-45 mg/dLLow HDL: less than 40 mg/dL Note: This HDL assay may give artificially low results in patients with liver disease. Blood Venous blood specimen / Unknown 02/17/2023 9:09 AM EST 02/17/2023 11:14 AM EST us Isha Estrada MD LAB BLOOD ORDERABLES Final Res ult [facility] [address] [place], [place] [phone] from Last 3 Months or Most Recently Relevant to Health Maintenance Insurance Care Teams Us Customs And Border Officer Relationship Specialty Start Date End Date Isha Estrada MD [address] [place] [phone] PCP - General Family Medicine 12/04/22
--- OUTSIDE RECORDS SUMMARY | 2024-06-01 15:09 | XMS_ITS | Encounter Summary ---
Author Organization [employer] Address [address] [facility] 7t [place] [address] Care Team Providers Care Home Care Scheduler Name Role Phone Isha Estrada MD Primary Care Provider [phone] Encounter Details Date Type Department Care Team [...] Description 06/09/2024 10:00 AM EDT Clinical Support [facility] [address] [place] [address] documented as of this encounter Visit Diagnoses Not on filedocumented in this encounter Additional Health Concerns Assessment Noted Time PHQ-9 Depression Total Score: 0 02/12/20 23 2:02 PM EST documented as of this encounter Care Teams Home Care Scheduler Relationship Specialty Start Date End Date Isha Estrada MD [address] [place] [address] PCP - General Family Medicine 12/04/22 documented as of this encounter
--- OUTSIDE RECORDS SUMMARY | 2024-06-01 15:09 | XMS_ITS | Encounter Summary ---
Author Organization [employer] Address [address] [place] [address] Care Team Providers Care Software Reverse Engineer Name Role Phone Isha Estrada MD Primary Care Provider [phone] Encounter Details Date Type Department Care Team (Late st Contact Info) Description 05/13/2024 10:30 AM EST Office Visit [facility] [address] [place] [address] Isha Estrada MD [address] [place] [address] Autistic disorder (Primary Dx); Dietary [...] Acute Concerns: Flu and COVID done at [facility] in Jan 2024, not available on record [...] Description 06/09/2024 10:00 AM EDT Clinical Support [facility] [address] [place] [phone] documented as of this encounter Procedures Procedure [...] Res ult [facility] [address] [place] [address] [phone] documented in this encounter Visit Diagnoses [...] documented as of this encounter Care Teams Software Reverse Engineer Relationship Specialty Start Date End Date Isha Estrada MD [address] [place] [phone] PCP - General Family Medicine 12/04/22 documented as of this encounter
--- OUTSIDE RECORDS SUMMARY | 2024-06-01 15:09 | XMS_ITS | Encounter Summary ---
Author Organization [employer] Address [address] [facility] 7t [place] [address] Care Team Providers Care Electrician Apprentice Name Role Phone Theron Melgar ZENON Primary Care Provider Unavail Isha Alvares MD Primary Care Provider [phone] Encounter Details Date Type Department Care Team (Late st Contact Info) Description 03/14/2022 Orders Only [facility] [address] [place] [phone] Anupama Philip MD [address] [place] [address] Social History Tobacco Use Types Packs/Day Years [...] Description 06/09/2024 10:00 AM EDT Clinical Support [facility] [address] [place] [phone] documented as of this encounter Procedures Procedure Name Priority Date/Time Associated Diagnosis Comments GROSS AND MICROSCOPIC LEVEL 3 Routine 03/04/2023 7:56 AM EST GRAM STAIN Routine 02/10/2023 9:40 AM EST documented in this encounter Results * Gross and Microscopic Level 3 (03/04/2023 7:56 AM EST) 03/04/2023 7:56 AM EST 03/04/2023 8:48 AM EST Narrative [facility] - 03/06/2023 1:10 PM EST ----- ------- Name: MalikAndrae ?Age/Sex: 17/M ? : 2005 Unit#: [id number] ?? Attend Dr: Ronny Kilpatrick MD ?Re03/04/23 ?Status: DEP SDC ? Location: HO.SSS ?Disch: ? ----- ------- SPEC : [id number] ? RECD: 03/04/23 ? STATUS: ??SOUT ? REQ NUM: [id number] ? ANTHONY: 03/04/23-755 ? SUBM DR: Ronny Kilpatrick MD ? ENTERED: ??03/04/23 ?SP TYPE: Surgical ? OTHR : [facility] ? ORDERED: ??Gross Micro L3 ? [...] subcutaneous fat is dense, edematous and fibrotic. ??Diamond Die Maker sections are submitted in a cassette labeled A1. CEDS Copies To: ?? [facility] ?? [address] ?? [place] [address] ? Ronny Kilpatrick MD ?? [address] [place] [address] ?? [place] [address] ?? [phone] ----- ------- Signed (signature on file) Valdo Gould MD 03/06/23 1310 ? ----- ------- ? END OF REPORT ? Generic External Data Provider LAB CYTOLOGY ORDE RABLES Final Result Performing Organization Address [facility] Co de Phone Number [facility] [address] [place] [address] [phone] * Gram stain (02/10/2023 9:40 AM EST) 02/10/2023 9:40 AM EST 02/10/2023 12:04 PM EST Comment:Pilonidal Narrative [facility] - 02/12/2023 8:41 AM EST Gram stain results: 3+ polys 4+ Gram-positive cocci 3+ Gram-negative rods Streptococcus viridans group Quant Org ID 4+ Susc N/A Susceptibility not routinely performed on this isolate. Specimen Source: Pilonidal Cyst Generic External Data Provider LAB MICROBIOLOGY - GENERAL ORDERABLES Final Result Performing Organization Address [facility] Co de Phone Number [facility] [address] [place], [place] [phone] documented in this encounter Visit Diagnoses Not on filedocumented in this encounter Care Teams Electrician Apprentice Relationship Specialty Start Date End Date Theron Melgar AGNP PCP - General Family Medicine 02/24/22 12/03/22 Isha Estrada MD [address] [place] [address] PCP - General Family Medicine 12/04/22 documented as of this encounter
== END 2024-06-01 13:24 | disposition home or self-care (01) ==
DX: S62.347 Nondisplaced fracture of base of fifth metacarpal bone, left hand (principal)
CPT/HCPCS: 99024

== ENCOUNTER → 2024-06-01 12:56 | Outpatient (BNV) | payer MEDICAID, SELFPAY | PROVIDERS: Visit Provider Radiology Diagnostic Radiology | DX: M79.642 Pain in left hand (principal) | CPT/HCPCS: 73130 ==

== ENCOUNTER 2024-06-27 08:55 | Outpatient (REF) | payer MEDICAID, SELFPAY ==
--- NOTE | ~2024-06-27 | XR_ITS ---
EXAMINATION: XR HAND 3 OR MORE VIEWS LEFT HISTORY: M79.642 - Pain in left hand COMPARISON: Comparison is made with the prior examination dated 06/01/2024. FINDINGS: Three views of the left hand are submitted. Osseous mineralization is normal. Again seen is a nondisplaced fracture of the base of the 5th metacarpal. The fracture line remains visible. The joint spaces are preserved. The soft tissues are unremarkable. XR/XR hand LT min 3V IMPRESSION: Nondisplaced fracture of the base of the 5th metacarpal without change. Electronically signed by: Mane Reynaga MD 06/28/2024 08:12 AM EDT
--- OUTSIDE RECORDS SUMMARY | 2024-06-28 09:34 | XMS_ITS | Clinical Summary ---
Author Organization [employer] Address [address] [place] [address] 7t [place] [address] Care Team Providers Care Police Superintendent Name Role Phone Isha Estrada MD Primary Care Provider [phone] Allergies No known active allergies Medications risperiDONE [...] Team Description 06/10/2024 Population Health Risk Score [facility] (C3) Department [address] [phone] Provider, Population Health Generic 06/09/2024 10:00 AM EDT Clinical Support [address] [address] Priyanka Vasquez RN Elevated blood pressure reading in office without diagnosis of hypertension 06/09/2024 Travel 05/13/2024 10:30 AM EST Office Visit [address] [address] Isha Estrada MD Autistic disorder (Primary Dx); Dietary counseling; Exercise counseling; Class 2 severe obesity with serious comorbidity and body mass index (BMI) of 37.0 to 37.9 in adult, unspecified obesity type (CMS/HCC); Acne vulgaris; Elevated blood pressure reading in office without diagnosis of hypertension 05/13/2024 Travel 05/02/2024 Patient Outreach [address] [address] Isha Estrada MD Pre-visit Planning ((Unable to reach for PVP screening, LVM)) 04/07/2024 Orders Only [facility] External Provider, [facility] from Last 3 Months Immunizations Name Administration [...] Free T4 2.48 0.32 - 4.0 uIU/mL [facility] Blood Venous blood specimen / Unknown 05/13/2024 11:18 AM EST 05/13/2024 1:10 PM EST us Isha Estrada MD LAB BLOOD ORDERABLES Final Res ult [facility] [address] [place] [phone] [phone] * XR Hand 3+ Views Left (04/07/2024 9:16 PM EST) Anatomical Region Laterality Modality Upper Extremities, Hand Left Radiogra phic Imaging 04/07/2024 9:16 PM EST Narrative 04/07/2024 9:18 PM EST ? [facility] ?[address] ?[place] [address] ?XRay Report ? Signed ? Patient: Malik,Andrae ?MR#: [id number] ?? 200 ? : 2005 ?Acct:[id number] ? Age/Sex: 18 / M ?ADM Date: 04/07/24 ? Loc: HO.ED ? Attending Dr: ? Ordering Physician: Karo Chavez AUDIO/VIDEO TECHNICIAN ?? Date of Service: 04/07/24 ?? Procedure(s): XR hand LT min 3V ?? Accession Number(s): [id number] ? cc: Isha Estrada; Karo Chavez AUDIO/VIDEO TECHNICIAN ? CLINICAL HISTORY: tenderness over 4th metacarpal, [...] ? DD/ 15 ? TD/TT: 04/07/242115 ? Fruit Picker Machine Operator: ? Procedure Note Linda Horn - 04/07/[address] [address] XRay Report Signed Patient: Lidia Malik#: [id number] 200 : 2005Acct:[id number] Age/Sex: 18 / MADM Date: 04/07/24 Loc: HO.ED Attending Dr: Ordering Physician: Karo Chavez NP Date of Service: 04/07/24 Procedure(s): XR hand LT min 3V Accession Number(s): [id number] cc: Isah Estrada; Karo Chavez NP CLINICAL HISTORY: tenderness [...] in OV> 04/07/242116 DD/ 15 TD/TT: 04/07/242115 Fruit Picker Machine Operator: [facility] External Provider IMG XR PROCEDURES Edited Result - Final * (ABNORMAL) Lipid Panel, Standard (02/17/2023 9:09 AM EST) Triglycerides 171(H) <150 mg/dL [facility] Comment:Desirable Triglyceri de: less than 90 mg/dLBorderline High Triglyceride: 90-129 mg/dLHigh Triglyceride: greater than 130 mg/dL Cholesterol 151 <200 mg/dL [facility] Comment:Desirable Cholestero l: less than 170 mg/dLBorderline High Cholesterol: 170-199 mg/dLHigh Cholesterol: greater than 200 mg/dL LDL Cholesterol Calculated 77 <100 mg/dL [facility] Comment:Desirable LDL: less than 110 mg/dLBorderline LDL: 110-129 mg/dLHigh LDL: greater than or equal to 130 mg/dL HDL Cholesterol 40(L) >40 mg/dL [facility] Comment:Desirable HDL: great er than 45 mg/dLBorderline HDL: 40-45 mg/dLLow HDL: less than 40 mg/dL Note: This HDL assay may give artificially low results in patients with liver disease. Blood Venous blood specimen / Unknown 02/17/2023 9:09 AM EST 02/17/2023 11:14 AM EST us Isha Estrada MD LAB BLOOD ORDERABLES Final Res ult [facility] [address] [place] [address] [phone] from Last 3 Months or Most Recently Relevant to Health Maintenance Insurance [employer] C3 Care Teams Police Superintendent Relationship Specialty Start Date End Date Isha Estrada MD [address] [place] [address] PCP - General Family Medicine 12/04/22
--- OUTSIDE RECORDS SUMMARY | 2024-06-28 09:34 | XMS_ITS | Encounter Summary ---
Author Organization [employer] Address [address] [facility] 7t [place] [address] Care Team Providers Care Trimmer Sawyer Name Role Phone Theron Melgar Primary Care Provider Unavail Isha Alvares MD Primary Care Provider [phone] Encounter Details Date Type Department Care Team (Late st Contact Info) Description 03/14/2022 Orders Only [facility] [address] [place], [place] [phone] Anupama Philip MD [address] [place], [place] [phone] Social History Tobacco Use Types Packs/Day Years [...] 7:56 AM EST 03/04/2023 8:48 AM EST [facility] - 03/06/2023 1:10 PM EST ----- ------- Name: Andrae Malik ?Age/Sex: 17/M ? : 2005 Unit#: [id number] ?? Attend Dr: Ronny Kilpatrick MD ?Re03/04/23 ?Status: DEP SDC ? Location: HO.SSS ?Disch: ? ----- ------- SPEC : [id number] ? RECD: 03/04/23 ? STATUS: ??SOUT ? REQ NUM: [id number] ? ANTHONY: 03/04/23 ? SUBM DR: Ronny Kilpatrick MD ? ENTERED: ??03/04/23 ?SP TYPE: Surgical ? OTHR DR: [facility] ? ORDERED: ??Gross Micro L3 ? [...] subcutaneous fat is dense, edematous and fibrotic. ??Device Repair Technician sections are submitted in a cassette labeled A1. CEDS Copies To: ?? [facility] ?? [address] ?? [place] [address] ? Ronny Kilpatrick MD ?? [address] [place] [address] ?? [place] [address] ?? [phone] ----- ------- Signed (signature on file) Valdo Gould MD 03/06/23 1310 ? ----- ------- ? END OF REPORT ? Generic External Data Provider LAB CYTOLOGY ORDE RABLES Final Result Performing Organization Address [facility] de Phone Number [facility] [address] [place] [phone] * Gram stain (02/10/2023 9:40 AM EST) 02/10/2023 9:40 AM EST 02/10/2023 12:04 PM EST Comment:Pilonidal Narrative [facility] - 02/12/2023 8:41 AM EST Gram stain results: 3+ polys 4+ Gram-positive cocci 3+ Gram-negative rods Streptococcus viridans group Quant Org ID 4+ Susc N/A Susceptibility not routinely performed on this isolate. Specimen Source: Pilonidal Cyst Generic External Data Provider LAB MICROBIOLOGY - GENERAL ORDERABLES Final Result Performing Organization Address [facility] de Phone Number [facility] [address] [place] [phone] documented in this encounter Visit Diagnoses Not on filedocumented in this encounter Care Teams Trimmer Sawyer Relationship Specialty Start Date End Date Theron Melgar AGNP PCP - General Family Medicine 02/24/22 12/03/22 Isha Estrada MD [address] [place] [address] PCP - General Family Medicine 12/04/22 documented as of this encounter
== END 2024-06-27 08:56 | disposition home or self-care (01) ==
LOC: HO.HOSX 08:55
DX: M79.642 Pain in left hand (principal); S62.347 Nondisplaced fracture of base of fifth metacarpal bone, left hand; W22.8XXS Striking against or struck by other objects, sequela; Y93.9 Activity, unspecified; Y92.9 Unspecified place or not applicable; Y99.9 Unspecified external cause status; F84.0 Autistic disorder
CPT/HCPCS: 73130; 99212

== ENCOUNTER 2024-06-27 13:21 | Outpatient (AMB) | payer MEDICAID, SELFPAY ==
--- NOTE | 2024-06-27 13:23 | MHC.OFFVIS ---
Vital Signs 06/27/24 13:24 Height 5 ft 5 in Weight 221 lb BMI 36.8 Intake Visit Reasons: OV - left hand 5th MC fx DOI 04/07/24-w/xray Intake Note: Andrae is a 18 year old - hand dominant male who presents today for a follow up visit for his fracture of base of fifth metacarpal bone, left hand s/p punching wall DOI: 04/07/24. At his last visit patient was educated he should continue wearing the Velcro wrist splint with high-risk activities, but can discontinue with all others. States he is doing better and has removed his brace to work on his ROM. States he still has some limitations but is better over all. Allergies No Known Allergies Allergy (Verified 06/27/24 13:25) HPI HPI OV - left hand 5th MC fx DOI 04/07/24-w/xray: Details: Andrae is a 18 year old - hand dominant male who presents today for a follow up visit for his fracture of base of fifth metacarpal bone, left hand s/p punching wall DOI: 04/07/24. At his last visit patient was educated he should continue wearing the Velcro wrist splint with high-risk activities, but can discontinue with all others. States he is doing better and has removed his brace to work on his ROM. States he still has some minimal limitations but is better over all. FORMERLY [facility], [facility] Medical History Eczema Autism Pilonidal abscess Surgical History History of excision of pilonidal cyst (03/04/23) History of wisdom tooth extraction Family History Father Non-Hodgkin lymphoma, Onset Age: 40 Social History Alcohol intake: never Patient Tobacco Use Status: Never used Tobacco Review of Systems Const All systems reviewed & are unremarkable except as noted in HPI and below Physical Exam Vital Signs: BMI result Body Mass Index 36.8 Extrem Other: Patient is alert, oriented, and in no acute distress. Neuro: Normal sensation of the tips of all digits of the left hand at this time Vascular: Cap refill brisk Pain: Patient reports no tenderness to palpation at the level of the fracture of the left 5th metacarpal No discomfort with range of motion ROM: Patient was able to make a closed fist and extend all digits of the left hand fully Skin: No lacerations or abrasions. General: No edema noted of the ulnar left hand No ecchymosis, erythema, or evidence of infection. Psych: Appears grossly normal Affect normal Attitude cooperative Results Reviewed Results Reviewed: X-rays obtained in the office today and independently reviewed by me, Carl Lucas PA-C, demonstrate nondisplaced fracture of the left 5th metacarpal base with evidence of interval bony healing. Assessment & Plan Assessment & Plan (1) Nondisplaced fracture of base of fifth metacarpal bone, left hand, sequela: Code(s): S62.347S - Nondisplaced fracture of base of fifth metacarpal bone, left hand, sequela Category: Medical Plan 1. Left 5th metacarpal base fracture Date of injury 04/07/2024 Patient is educated about this condition Patient was educated about the typical recovery course Patient was educated he should discontinue use of the Velcro wrist splint at this time Patient was educated he should continue gradually increase to normal weightlifting capacity over the next 3-4 weeks Patient was amenable to this plan Patient will follow-up in 3-4 weeks as needed with any acute concerns Orders: Orders XR hand LT min 3V Today M79.642 - Pain in left hand Coding Level of Care Code Global (56075) Diagnoses Nondisplaced fracture of base of fifth metacarpal bone, left hand, sequela S62.347S
[2024-06-27 13:24] VITALS: BMI 36.8
--- OUTSIDE RECORDS SUMMARY | 2024-06-27 15:02 | XMS_ITS | Clinical Summary ---
Author Organization [employer] Address [address] [place] [address] [address] [place] [address] Care Team Providers Care Mosaicist Name Role Phone Isha Estrada MD Primary Care Provider [phone] Allergies No known active allergies Medications risperiDONE (RisperDAL) 1 MG tablet Take 1 mg by mouth at bedtime. 3 Active hydrOXYzine HCl (Atarax) 25 MG tablet TAKE 1 TABLET BY MOUTH ONCE DAILY AT BEDTIME NEEDED FOR SLEEP 90 tablet 3 4 Active tretinoin (Retin-A) 0.05 % cream Apply topically at bedtime. 45 g 3 5 05/13/19 26 Active escitalopram (Lexapro) 5 MG tablet Take 1 tablet by mouth Once per day. 5 Active famotidine (Pepcid) 20 MG tablet Take 1 tablet (20 mg) by mouth at bedtime. 90 tablet 3 5 05/16/19 26 Active Active Problems Problem Noted Date [...] Encounters Date Type Department Care Team Description 06/10/2024 Population Health Risk Score [facility] (C3) Department [address] [phone] Provider, Population Health Generic 06/09/2024 10:00 AM EDT Clinical Support [address] [address] Priyanka Vasquez RN Elevated blood pressure reading in office without diagnosis of hypertension 06/09/2024 Travel 05/13/2024 10:30 AM EST Office Visit [address] [address] Isha Estrada MD Autistic disorder (Primary Dx); Dietary counseling; Exercise counseling; Class 2 severe obesity with serious comorbidity and body mass index (BMI) of 37.0 to 37.9 in adult, unspecified obesity type (CMS/HCC); Acne vulgaris; Elevated blood pressure reading in office without diagnosis of hypertension 05/13/2024 Travel 05/02/2024 Patient Outreach [address] [address] Isha Estrada MD Pre-visit Planning ((Unable to reach for PVP screening, LVM)) 04/07/2024 Orders Only [facility] External Provider, [facility] from Last 3 Months Immunizations Name Administration [...] Sign Reading Time Taken Comments Blood Pressure 131/80 06/09/2024 10:18 AM EDT Pulse 96 06/09/2024 10:18 AM EDT Temperature 36.8 ??C (98.2 ??F) 05/13/2024 10:25 [...] series) 05/06/2023 02/11/2023, 07/06/2020 COVID-19 Vaccine ( - season) 2023 02/11/2023, 08/15/2020, 07/25/2020 Influenza Vaccine [...] complete this topic HIB Vaccines Completed 01/01/2005, 0 07/2004, 01/26/2004, Additional history exists IPV Vaccines [...] 37.9 in adult, unspecified obesity type (CMS/HCC) XR HAND 3+ VIEWS LEFT Routine 04/07/2024 9:16 PM EST LIPID PANEL, STANDARD Routine 02/17/2023 9:09 AM EST Routine history and physical examination of adult from Last 3 Months or Most Recently Relevant to Health Maintenance Results * TSH W/Reflex to FT4 (05/13/2024 11:18 AM EST) TSH reflex Free T4 2.48 0.32 - 4.0 uIU/mL [facility] Blood Venous blood specimen / Unknown 05/13/2024 11:18 AM EST 05/13/2024 1:10 PM EST us Isha Estrada MD LAB BLOOD ORDERABLES Final Res ult [facility] [address] [place] [address] [phone] * XR Hand 3+ Views Left (04/07/2024 9:16 PM EST) Anatomical Region Laterality Modality Upper Extremities, Hand Left Radiogra phic Imaging 04/07/2024 9:16 PM EST Narrative 04/07/2024 9:18 PM EST ? [facility] ?[address] ?[place] [address] ?XRay Report ? Signed ? Patient: Malik,Andrae ?MR#: [id number] ?? 200 ? : 2005 ?Acct:[id number] ? Age/Sex: 18 / M ?ADM Date: 04/07/24 ? Loc: HO.ED ? Attending Dr: ? Ordering Physician: Karo Chavez JOURNEYMAN PAINTER ?? Date of Service: 04/07/24 ?? Procedure(s): XR hand LT min 3V ?? Accession Number(s): [id number] ? cc: Isha Estrada; Karo Chavez JOURNEYMAN PAINTER ? CLINICAL HISTORY: tenderness over 4th metacarpal, [...] ? DD/ 15 ? TD/TT: 04/07/242115 ? Assurance Engineer: ? Procedure Note Linda Horn - 04/07/[address] [address] XRay Report Signed Patient: Lidia Malik#: [id number] 200 : 2005Acct:[id number] Age/Sex: 18 / MADM Date: 04/07/24 Loc: HO.ED Attending Dr: Ordering Physician: Karo Chavez NP Date of Service: 04/07/24 Procedure(s): XR hand LT min 3V Accession Number(s): [id number] cc: Isha Estrada; Karo Chavez NP CLINICAL [...] in OV> 04/07/242116 DD/ 15 TD/TT: 04/07/242115 Assurance Engineer: [facility] External Provider IMG XR PROCEDURES Edited Result - Final * (ABNORMAL) Lipid Panel, Standard (02/17/2023 9:09 AM EST) Triglycerides 171(H) <150 mg/dL [facility] Comment:Desirable Triglyceri de: less than 90 mg/dLBorderline High Triglyceride: 90-129 mg/dLHigh Triglyceride: greater than 130 mg/dL Cholesterol 151 <200 mg/dL [facility] Comment:Desirable Cholestero l: less than 170 mg/dLBorderline High Cholesterol: 170-199 mg/dLHigh Cholesterol: greater than 200 mg/dL LDL Cholesterol Calculated 77 <100 mg/dL [facility] Comment:Desirable LDL: less than 110 mg/dLBorderline LDL: 110-129 mg/dLHigh LDL: greater than or equal to 130 mg/dL HDL Cholesterol 40(L) >40 mg/dL [facility] Comment:Desirable HDL: great er than 45 mg/dLBorderline HDL: 40-45 mg/dLLow HDL: less than 40 mg/dL Note: This HDL assay may give artificially low results in patients with liver disease. Blood Venous blood specimen / Unknown 02/17/2023 9:09 AM EST 02/17/2023 11:14 AM EST us Isha Estrada MD LAB BLOOD ORDERABLES Final Res ult [facility] [address] [place] [address] [phone] from Last 3 Months or Most Recently Relevant to Health Maintenance Insurance [employer] Care Teams Mosaicist Relationship Specialty Start Date End Date Isha Estrada MD [address] [place] [address] PCP - General Family Medicine 12/04/22
--- OUTSIDE RECORDS SUMMARY | 2024-06-27 15:02 | XMS_ITS | Encounter Summary ---
Author Organization [employer] Address [address] [facility] 7t [place] [address] Care Team Providers Care Proprietary Trader Name Role Phone Theron Melgar Primary Care Provider Unavail Isha Alvares MD Primary Care Provider [phone] Encounter Details Date Type Department Care Team (Late st Contact Info) Description 03/14/2022 Orders Only [facility] [address] [place], [place] [phone] Anupama Philip MD [address] [place], [place] [phone] Social History Tobacco Use Types Packs/Day Years [...] 7:56 AM EST 03/04/2023 8:48 AM EST [facility] - 03/06/2023 1:10 PM EST ----- ------- Name: Andrae Malik ?Age/Sex: 17/M ? : 2005 Unit#: [id number] ?? Attend Dr: Ronny Kilpatrick MD ?Re03/04/23 ?Status: DEP SDC ? Location: HO.SSS ?Disch: ? ----- ------- SPEC : [id number] ? RECD: 03/04/23 ? STATUS: ??SOUT ? REQ NUM: [id number] ? ANTHONY: 03/04/23 ? SUBM DR: Ronny Kilpatrick MD ? ENTERED: ??03/04/23 ?SP TYPE: Surgical ? OTHR DR: [facility] ? ORDERED: ??Gross Micro L3 ? [...] subcutaneous fat is dense, edematous and fibrotic. ??Solar Consultant sections are submitted in a cassette labeled A1. CEDS Copies To: ?? [facility] ?? [address] ?? [place] [address] ? Ronny Kilpatrick MD ?? [address] [place] [address] ?? [place] [address] ?? [phone] ----- ------- Signed (signature on file) Valdo Gould MD 03/06/23 1310 ? ----- ------- ? END OF REPORT ? Generic External Data Provider LAB CYTOLOGY ORDE RABLES Final Result Performing Organization Address [facility] de Phone Number [facility] [address] [place] [phone] * Gram stain (02/10/2023 9:40 AM EST) 02/10/2023 9:40 AM EST 02/10/2023 12:04 PM EST Comment:Pilonidal Narrative [facility] - 02/12/2023 8:41 AM EST Gram stain results: 3+ polys 4+ Gram-positive cocci 3+ Gram-negative rods Streptococcus viridans group Quant Org ID 4+ Susc N/A Susceptibility not routinely performed on this isolate. Specimen Source: Pilonidal Cyst Generic External Data Provider LAB MICROBIOLOGY - GENERAL ORDERABLES Final Result Performing Organization Address [facility] de Phone Number [facility] [address] [place] [phone] documented in this encounter Visit Diagnoses Not on filedocumented in this encounter Care Teams Proprietary Trader Relationship Specialty Start Date End Date Theron Melgar AGNP PCP - General Family Medicine 02/24/22 12/03/22 Isha Estrada MD [address] [place] [address] PCP - General Family Medicine 12/04/22 documented as of this encounter
== END 2024-06-27 13:48 | disposition home or self-care (01) ==
LOC: HO.HOS 13:22
DX: S62.347 Nondisplaced fracture of base of fifth metacarpal bone, left hand (principal)
CPT/HCPCS: 99024

== ENCOUNTER → 2024-06-27 13:22 | Outpatient (BNV) | payer MEDICAID, SELFPAY | PROVIDERS: Visit Provider Radiology Diagnostic Radiology | DX: M79.642 Pain in left hand (principal) | CPT/HCPCS: 73130 ==